=== PATIENT | female | born 1945 | race Caucasian/White ===

== ENCOUNTER → 2019-02-25 | Outpatient (CLI) | payer MEDICARE, MEDICAID | LOC: FB.MH 08:00 | PROVIDERS: ATTEND Psychiatry & Neurology Psychiatry | DX: F33.9 Major depressive disorder, recurrent, unspecified (principal); F41.0 Panic disorder [episodic paroxysmal anxiety] | CPT/HCPCS: 99213 ==

== ENCOUNTER 2019-04-14 06:33 | Day surgery (SDC) | payer MEDICARE, MEDICAID ==
[~2019-04-14 06:33] MED LIST: Sodium Chloride 0.9% 10 ML Syringe FLUSH PRN
[2019-04-14] MEDS ORDERED: Dexamethasone 4 MG/ML 5 ML MDV IVPUSH ONE (06:34)
[2019-04-14] MEDS ORDERED: Midazolam 1 MG/ML 2 ML SDV IV ONE (06:34)
[2019-04-14] MEDS ORDERED: Ketorolac 30 MG/ML SDV IVPUSH ONE (06:34)
[2019-04-14] MEDS ORDERED: Ondansetron 4 MG/2 ML SDV IVPUSH ONE (06:34)
[2019-04-14] MEDS ORDERED: fentaNYL 100 MCG/2 ML SDV IV ONE (06:34)
[2019-04-14] MEDS ORDERED: Propofol 200 MG/20 ML SDV IV ONE (06:34)
[2019-04-14] MEDS ORDERED: hydrALAZINE 20 MG/ML SDV IV ONE (06:34)
[2019-04-14] MEDS ORDERED: ceFAZolin 1 GM Vial IV ONE (06:34)
[2019-04-14] MEDS ORDERED: HYDROmorphone 2 MG/ML SDV IV ONE (06:34)
[2019-04-14] MEDS ORDERED: Lidocaine 2% 5 ML SDV INJECT ONE (06:34)
[2019-04-14] MEDS ORDERED: Lactated Ringers 1,000 ML IV ONE (06:34)
[2019-04-14] MEDS: Lactated Ringers 1,000 ML IV SCH ×3 (07:16→20:46)
--- NOTE | 2019-04-14 08:21 | PCM.PN ---
- General Info Date of Service: 04/14/19 - Review of Systems Systems Review Comment:: 74 y/o female with known CA left breast here for Left Mastectomy and Left Axillary [place] Lymph Node Bx. She is medicaly stable to proceed with no recent significant changes to her health status. The site of the tumor is confirmed with the patient and marked. Proposed procedure again discussed with the patient and her family. Questions answered and she agrees to proceed. - Patient Data Vitals - Most Recent: Last Vital Signs Temp 98.4 F 04/14/19 07:02 Pulse 66 04/14/19 07:02 Resp 16 04/14/19 07:02 BP 145/57 H 04/14/19 07:02 Pulse Ox 95 04/14/19 07:02 Weight - Most Recent: 221 lb 3.7 oz Med Orders - Current: Current Medications Lactated Ringer's (Ringers, Lactated) 1,000 mls @ 125 mls/hr IV ASDIRECTED HAKAN Last Admin: 04/14/19 07:16 Dose: 125 mls/hr Sodium Chloride (Saline Flush) 10 ml FLUSH ASDIRECTED PRN PRN Reason: Keep Vein Open Sepsis Event Note - Focused Exam Vital Signs: Vital Signs Temp Pulse Resp BP Pulse Ox 04/14/19 07:02 98.4 F 66 16 145/57 H 95 Date Exam was Performed: 04/14/19 Time Exam was Performed: 08:18 - Problem List Review Problem List Initiated/Reviewed/Updated: Yes - My Orders Last 24 Hours: My Active Orders 04/13/19 11:43 Resuscitation Status Routine 04/13/19 Dinner Nothing Per Oral Diet [DIET] 04/14/19 06:30 Patient Status [ADT] Routine Patient to Empty Bladder [RC] ASDIRECTED RT Incentive Spirometry [RC] ASDIRECTED Verify Patient Consent Obtain [RC] ASDIRECTED Lactated Ringers [Ringers, Lactated] 1,000 ml IV ASDIRECTED Sodium Chloride 0.9% [Saline Flush] 10 ml FLUSH ASDIRECTED PRN Peripheral IV Insertion Adult [OM.PC] Routine Sequential Compression Device [OM.PC] Routine 04/14/19 07:00 Tumor Local Limited [NM] Routine - Assessment Assessment:: CA Left Breast - Plan Plan:: Left mastectomy with left axillary sentinel lymph node biopsy
[2019-04-14] MEDS ORDERED: Isosulfan Blue 5 ML SDV SUBCUT ONE (08:41)
--- NOTE | 2019-04-14 10:13 | PCM.OPNOTE ---
- General Post-Op/Procedure Note Date of Surgery/Procedure: 04/14/19 Operative Procedure(s): Left Mastectomy with Left Axillary [place] Lymph Node Biopsy Findings: No gross evidence of Tumor extension or enlarged lymph nodes. Pre Op Diagnosis: CA Left Breast Post-Op Diagnosis: Same Anesthesia Technique: General LMA Primary Surgeon: Can Redamn Fiberglass Ski Maker: Elvis Gandara Reason Fiberglass Ski Maker Was Necessary: To assist with dissection and exposure Pathology: Left breast Multiple left axillary lymph nodes EBL in mLs: 100 Surgical Drain/Tube Type: Raghavendra Younger Flat Drain Complications: None Condition: Good
[2019-04-14] MEDS ORDERED: Enoxaparin 100 MG/1 ML Syringe SUBCUT ONE (10:30)
[2019-04-14] MEDS ORDERED: Morphine 2 MG/ML Syringe IVPUSH PRN (12:45)
[2019-04-14] MEDS ORDERED: Acetaminophen/HYDROcodone 325-5 MG Tab PO PRN (12:45)
[2019-04-14] MEDS ORDERED: Albuterol 8 GM Inhaler INH PRN (14:31)
[2019-04-14] MEDS ORDERED: Baclofen 10 MG Tab PO PRN (15:00)
[2019-04-14] MEDS ORDERED: Polyethylene Glycol 3350 Powder 17 GM Packet PO PRN (15:00)
[2019-04-14] MEDS: Carbidopa/Levodopa 25-100 MG Tab PO SCH ×2 (16:19→20:15)
[2019-04-14] MEDS: ceFAZolin 1 GM Vial IVPUSH SCH (16:26)
--- NOTE | 2019-04-14 17:08 | PCM.SURGPN ---
- General Info Date of Service: 04/14/19 Date of Surgery/Procedure: 04/14/19 POD#: 0 Post-Op Diagnosis: CA Left Breast Functional Status: Reports: Pain Controlled - Patient Data Vitals - Most Recent: Last Vital Signs Temp 98.4 F 04/14/19 14:15 Pulse 70 04/14/19 14:15 Resp 18 04/14/19 14:15 BP 143/68 H 04/14/19 14:15 Pulse Ox 100 04/14/19 14:15 Weight - Most Recent: 221 lb 3.7 oz I&O - Last 24 Hours: Intake & Output 04/14/19 04/14/19 04/14/19 06:59 14:59 22:59 Intake Total 100 Output Total 1090 Balance -990 Med Orders - Current: Current Medications Acetaminophen (Tylenol Extra Strength) 500 mg PO Q4H PRN PRN Reason: Headache Hydrocodone Bitart/Acetaminophen ([place] 325-5 Mg) 1 tab PO Q4H PRN PRN Reason: Pain Hydrocodone Bitart/Acetaminophen ([place] 325-5 Mg) 2 tab PO Q4H PRN PRN Reason: Pain (moderate 4-6) Albuterol (Ventolin Hfa) 1 - 2 gm INH Q4H PRN PRN Reason: SHORTNESS OF BREATH Aspirin (Halfprin) 81 mg PO DAILY [facility] Atorvastatin Calcium (Lipitor) 10 mg PO BEDTIME [facility]AKAN Baclofen (Lioresal) 10 mg PO DAILY PRN PRN Reason: MUSCLS SPASMS Bupropion HCl (Wellbutrin Xl) 150 mg PO DAILY [facility] Bupropion HCl (Wellbutrin) 75 mg PO DAILY@1200 [facility] Carbidopa/Levodopa (Sinemet 25-100 Mg) 1 tab PO TID@0800,1500,2100 [facility] Last Admin: 04/14/19 16:19 Dose: 1 tab Carbidopa/Levodopa (Sinemet 25-100 Mg) 2 tab PO DAILY@1800 [facility] Cefazolin Sodium (Ancef) 1 gm IVPUSH Q8H [facility] Stop: 04/15/19 08:01 Last Admin: 04/14/19 16:26 Dose: 1 gm Cholecalciferol (Vitamin D3) 25 mcg PO DAILY [facility] Docusate Sodium (Colace) 100 mg PO DAILY [facility] Donepezil HCl (Aricept) 10 mg PO BEDTIME [facility]AKAN Duloxetine HCl (Cymbalta) 60 mg PO BEDTIME [facility]AK[facility] Enoxaparin Sodium (Lovenox) 30 mg SUBCUT DAILY [facility] Gabapentin (Neurontin) 300 mg PO BEDTIME [facility]AK[facility] Hydrochlorothiazide (Hydrochlorothiazide) 12.5 mg PO DAILY [facility] Lactated Ringer's (Ringers, Lactated) 1,000 mls @ 100 mls/hr IV ASDIRECTED [facility] Levothyroxine Sodium (Levothyroxine) 112 mcg PO DAILY@0600 [facility]AN Lorazepam (Ativan) 1 mg PO BEDTIME [facility]AKAN Losartan Potassium (Cozaar) 25 mg PO DAILY [facility] Memantine (Namenda) 10 mg PO BID [facility] Morphine Sulfate (Morphine) 2 mg IVPUSH Q2H PRN PRN Reason: Pain Multivitamins/Minerals/Vitamin C (Tab-A-Zeyad) 1 tab PO DAILY [facility] (Aripiprazole [ Abilify] 10 Mg) * Ptom 10 mg PO DAILY [facility] (Biotin [Biotin] 1, (000 Mcg) *Ptom) 1,000 mcg PO DAILY [facility]AKAN (Calcium Carbonate/Vitamin D3 [Calcium 600-Vit D3 800 Tab] *Ptom 1 each PO BID [facility] (Lamotrigine [ Lamictal] 150 Mg) * Ptom 150 mg PO BEDTIME HAKAN (Melatonin [ Melatonin] 5 Mg) * Ptom 5 mg PO BEDTIME [facility]AKAN (Omeprazole [ Omeprazole] 40 Mg) * Ptom 40 mg PO DAILY@0600 [facility] (Ropinirole [Requip] (4 Mg) *Ptom) 4 mg PO TIDMEALS [facility]AKAN (Trihexyphenidyl [ (Artane] 2 Mg) *Ptom) 2 mg PO BID@08,15 [facility] Last Admin: 04/14/19 16:19 Dose: 2 mg Polyethylene Glycol (Miralax) 17 gm PO DAILY PRN PRN Reason: CONSTIPATION Sodium Chloride (Saline Flush) 10 ml FLUSH ASDIRECTED PRN PRN Reason: Keep Vein Open Discontinued Medications Lactated Ringer's (Ringers, Lactated) 1,000 mls @ 125 mls/hr IV ASDIRECTED HAKAN Last Admin: 04/14/19 11:46 Dose: 125 mls/hr Isosulfan Blue (Lymphazurin 1%) 10 ml SUBCUT .STK-MED ONE Stop: 04/14/19 08:42 Last Admin: 04/14/19 08:41 Dose: 10 ml - Exam Wound/Incisions: Dressing Dry and Intact Extremities: Non-Tender (no calf tenderness), Other (no left arm swelling or pain) Physical Findings Comment:: ZARIA bloody and continues to drain since it was emptied 3 hours ago. Will observe. Sepsis Event Note - Focused Exam Vital Signs: Vital Signs Temp Temp Pulse Resp BP Pulse Ox 04/14/19 14:15 98.4 F 70 18 143/68 H 100 04/14/19 13:15 71 18 148/64 H 99 04/14/19 12:45 98.0 F 67 18 146/65 H 100 04/14/19 12:10 98.0 F 67 18 155/73 H 100 04/14/19 11:50 70 20 159/62 H 97 04/14/19 11:35 72 20 148/73 H 100 04/14/19 11:20 97.5 F 69 18 153/71 H 99 04/14/19 11:10 67 14 151/62 H 98 04/14/19 11:05 97.5 F 67 15 156/67 H 98 04/14/19 11:00 66 15 135/83 96 04/14/19 10:55 66 12 145/62 H 96 04/14/19 10:50 67 15 146/70 H 96 04/14/19 10:45 66 17 125/59 L 95 04/14/19 10:40 65 14 132/56 L 96 04/14/19 10:35 67 15 142/64 H 94 L 04/14/19 10:30 66 16 129/56 L 96 04/14/19 10:25 97.5 F 64 13 139/66 95 04/14/19 07:02 98.4 F 66 16 145/57 H 95 Date Exam was Performed: 04/14/19 Time Exam was Performed: 17:05 - Problem List Review Problem List Initiated/Reviewed/Updated: Yes - My Orders Last 24 Hours: Active Orders 24 hr Category Date Time Status Patient Status [ADT] Routine ADT 04/14/19 06:30 Ordered Activity as Tolerated [RC] .Routine Care 04/14/19 12:45 Active Communication Order [RC] 08,16, Care 04/14/19 12:45 Active Communication Order [RC] , Care 04/14/19 12:45 Active Communication Order [RC] 08,16,00 Care 04/14/19 12:45 Active IS (RT) [RT Incentive Spirometry] [RC] Q1HWA Care 04/14/19 12:45 Active Oxygen Therapy [RC] ASDIRECTED Care 04/14/19 11:07 Active Urinary Catheter Insertion [Insert Urinary Catheter] [ Care 04/14/19 13:00 Ordered OM.PC] DAILY Urinary Catheter Insertion [Insert Urinary Catheter] [ Care 04/15/19 13:00 Ordered OM.PC] DAILY Urinary Catheter Insertion [Insert Urinary Catheter] [ Care 04/16/19 13:00 Ordered OM.PC] DAILY Urinary Catheter Insertion [Insert Urinary Catheter] [ Care 04/17/19 13:00 Ordered OM.PC] DAILY Urinary Catheter Insertion [Insert Urinary Catheter] [ Care 04/18/19 13:00 Ordered OM.PC] DAILY Vital Signs [RC] PER UNIT ROUTINE Care 04/14/19 12:45 Active Full Liquid Diet [DIET] Diet 04/14/19 Dinner Ordered Nothing Per Oral Diet [DIET] Diet 04/13/19 Dinner Ordered Tumor Local Limited [NM] Routine Exams 04/14/19 12:06 Taken ARIPiprazole [Abilify] Med 04/15/19 09:00 Active 10 mg PO DAILY Acetaminophen [Tylenol Extra Strength] Med 04/14/19 16:37 Active 500 mg PO Q4H PRN Acetaminophen/HYDROcodone [[place] 325-5 MG] Med 04/14/19 12:45 Active 1 tab PO Q4H PRN Acetaminophen/HYDROcodone [[place] 325-5 MG] Med 04/14/19 12:45 Active 2 tab PO Q4H PRN Albuterol [Ventolin HFA] Med 04/14/19 14:31 Active 1 - 2 gm INH Q4H PRN Aspirin [Halfprin] Med 04/15/19 09:00 Active 81 mg PO DAILY Baclofen [Lioresal] Med 04/14/19 15:00 Active 10 mg PO DAILY PRN Biotin [Biotin] Med 04/15/19 09:00 Active 1,000 mcg PO DAILY Calcium Carbonate/Vitamin D3 [Calcium 600-Vit D3 800 Med 04/14/19 21:00 Active Tab] 1 each PO BID Carbidopa/Levodopa [Sinemet 25-100 mg] Med 04/14/19 15:00 Active 1 tab PO TID@0800,1500,2100 Carbidopa/Levodopa [Sinemet 25-100 mg] Med 04/14/19 18:00 Active 2 tab PO DAILY@1800 Cholecalciferol (Vitamin D3) [Vitamin D3] Med 04/15/19 09:00 Active 25 mcg PO DAILY DULoxetine [Cymbalta] Med 04/14/19 21:00 Active 60 mg PO BEDTIME Docusate Sodium [Colace] Med 04/15/19 09:00 Active 100 mg PO DAILY Donepezil [Aricept] Med 04/14/19 21:00 Active 10 mg PO BEDTIME Enoxaparin [Lovenox] Med 04/15/19 09:00 Ordered 30 mg SUBCUT DAILY Gabapentin [Neurontin] Med 04/14/19 21:00 Active 300 mg PO BEDTIME LORazepam [Ativan] Med 04/14/19 21:00 Active 1 mg PO BEDTIME Lactated Ringers [Ringers, Lactated] 1,000 ml Med 04/14/19 12:45 Active IV ASDIRECTED Levothyroxine Med 04/15/19 06:00 Active 112 mcg PO DAILY@0600 Losartan [Cozaar] Med 04/15/19 09:00 Active 25 mg PO DAILY Melatonin [Melatonin] Med 04/14/19 21:00 Active 5 mg PO BEDTIME Memantine [Namenda] Med 04/14/19 21:00 Active 10 mg PO BID Morphine Med 04/14/19 12:45 Active 2 mg IVPUSH Q2H PRN Multivitamins [Tab-A-Zeyad] Med 04/15/19 09:00 Active 1 tab PO DAILY Omeprazole [Omeprazole] Med 04/15/19 06:00 Active 40 mg PO DAILY@0600 Polyethylene Glycol 3350 [MiraLAX] Med 04/14/19 15:00 Active 17 gm PO DAILY PRN Sodium Chloride 0.9% [Saline Flush] Med 04/14/19 06:30 Active 10 ml FLUSH ASDIRECTED PRN Trihexyphenidyl [Artane] Med 04/14/19 15:00 Active 2 mg PO BID@08,15 atorvaSTATin [Lipitor] Med 04/14/19 21:00 Active 10 mg PO BEDTIME buPROPion [Wellbutrin XL] Med 04/15/19 09:00 Active 150 mg PO DAILY buPROPion [Wellbutrin] Med 04/15/19 12:00 Active 75 mg PO DAILY@1200 ceFAZolin [Ancef] Med 04/14/19 16:00 Active 1 gm IVPUSH Q8H hydroCHLOROthiazide Med 04/15/19 09:00 Active 12.5 mg PO DAILY lamoTRIgine [LaMICtal] Med 04/14/19 21:00 Active 150 mg PO BEDTIME rOPINIRole [Requip] Med 04/14/19 18:00 Active 4 mg PO TIDMEALS Peripheral IV Insertion Adult [OM.PC] Routine Oth 04/14/19 06:30 Ordered Sequential Compression Device [OM.PC] Routine Oth 04/14/19 06:30 Ordered Medication Orders Acetaminophen (Tylenol Extra Strength) 500 mg PO Q4H PRN PRN Reason: Headache Hydrocodone Bitart/Acetaminophen ([place] 325-5 Mg) 1 tab PO Q4H PRN PRN Reason: Pain Hydrocodone Bitart/Acetaminophen ([place] 325-5 Mg) 2 tab PO Q4H PRN PRN Reason: Pain (moderate 4-6) Albuterol (Ventolin Hfa) 1 - 2 gm INH Q4H PRN PRN Reason: SHORTNESS OF BREATH Aspirin (Halfprin) 81 mg PO DAILY [facility] Atorvastatin Calcium (Lipitor) 10 mg PO BEDTIME [facility] Baclofen (Lioresal) 10 mg PO DAILY PRN PRN Reason: MUSCLS SPASMS Bupropion HCl (Wellbutrin Xl) 150 mg PO DAILY [facility] Bupropion HCl (Wellbutrin) 75 mg PO DAILY@1200 [facility] Carbidopa/Levodopa (Sinemet 25-100 Mg) 1 tab PO TID@0800,1500,2100 [facility] Last Admin: 04/14/19 16:19 Dose: 1 tab Carbidopa/Levodopa (Sinemet 25-100 Mg) 2 tab PO DAILY@1800 [facility] Cefazolin Sodium (Ancef) 1 gm IVPUSH Q8H [facility] Stop: 04/15/19 08:01 Last Admin: 04/14/19 16:26 Dose: 1 gm Cholecalciferol (Vitamin D3) 25 mcg PO DAILY [facility] Docusate Sodium (Colace) 100 mg PO DAILY [facility] Donepezil HCl (Aricept) 10 mg PO BEDTIME [facility] Duloxetine HCl (Cymbalta) 60 mg PO BEDTIME [facility] Enoxaparin Sodium (Lovenox) 30 mg SUBCUT DAILY [facility] Gabapentin (Neurontin) 300 mg PO BEDTIME [facility] Hydrochlorothiazide (Hydrochlorothiazide) 12.5 mg PO DAILY [facility] Lactated Ringer's (Ringers, Lactated) 1,000 mls @ 100 mls/hr IV ASDIRECTED [facility]AKAN Levothyroxine Sodium (Levothyroxine) 112 mcg PO DAILY@0600 [facility] Lorazepam (Ativan) 1 mg PO BEDTIME [facility] Losartan Potassium (Cozaar) 25 mg PO DAILY [facility] Memantine (Namenda) 10 mg PO BID [facility] Morphine Sulfate (Morphine) 2 mg IVPUSH Q2H PRN PRN Reason: Pain Multivitamins/Minerals/Vitamin C (Tab-A-Zeyad) 1 tab PO DAILY [facility] (Aripiprazole [ Abilify] 10 Mg) * Ptom 10 mg PO DAILY [facility] (Biotin [Biotin] 1, (000 Mcg) *Ptom) 1,000 mcg PO DAILY [facility] (Calcium Carbonate/Vitamin D3 [Calcium 600-Vit D3 800 Tab] *Ptom 1 each PO BID [facility] (Lamotrigine [ Lamictal] 150 Mg) * Ptom 150 mg PO BEDTIME HAKAN (Melatonin [ Melatonin] 5 Mg) * Ptom 5 mg PO BEDTIME [facility]AKAN (Omeprazole [ Omeprazole] 40 Mg) * Ptom 40 mg PO DAILY@0600 [facility] (Ropinirole [Requip] (4 Mg) *Ptom) 4 mg PO TIDMEALS HAKAN (Trihexyphenidyl [ (Artane] 2 Mg) *Ptom) 2 mg PO BID@08,15 [facility] Last Admin: 04/14/19 16:19 Dose: 2 mg Polyethylene Glycol (Miralax) 17 gm PO DAILY PRN PRN Reason: CONSTIPATION Sodium Chloride (Saline Flush) 10 ml FLUSH ASDIRECTED PRN PRN Reason: Keep Vein Open - Assessment Assessment (Free Text/Narrative):: Mastectomy for Breast CA Factor V - Plan Plan (Free Text/Narrative):: Another dose of Lovenox ordered for tomorrow am. will see how drainage is at that time.
--- NOTE | 2019-04-14 17:50 | OR ---
DATE OF OPERATION: 04/14/2019 SURGEON: Can Redman MD IMPROVEMENT MANAGER: Elvis Gandara MD. Applique Cutter necessary to assist with dissection and exposure and improve efficiency. PREOPERATIVE DIAGNOSIS: Carcinoma of the left breast. POSTOPERATIVE DIAGNOSIS: Carcinoma of the left breast. OPERATION PERFORMED: Left mastectomy and left axillary sentinel lymph node biopsy. INDICATIONS FOR SURGERY: This 74-year-old female was found on screening mammography to have an abnormality in her left breast. Biopsy did identify this as a malignancy. She underwent oncologic consultation and comes today for left mastectomy and lymph node sampling. FINDINGS: In the left breast, there is no gross evidence of tumor extension outside of the breast. The underlying muscle appears intact as does the overlying skin. I do not see any specific enlarged or visibly abnormal lymph nodes although multiple nodes are removed for sentinel node biopsy. PROCEDURE IN DETAIL: The patient was taken to the operating room. She was given LMA anesthesia and the left breast and axilla were sterilely prepped with Betadine and draped. The proposed location of the transverse elliptical incision on the left breast was marked and the superior flap was raised. First, the incision was made and then using cautery dissection the superior flap was raised with dissection being carried down to the underlying pectoralis major muscle. Hemostasis was assured with cautery and Vicryl suture ligatures were needed. This carried the dissection into the axilla and using the probe careful examination of the left axilla identified areas of increased uptake. The patient had 1.3 microcuries of radionucleotide tracer injected beneath the left areola prior to the patient coming back to the OR. With the help of the radionucleotide identifying probe, 3 sentinel nodes were obtained with 10-second counts of 7751, 526, and 855. Dissection then continued with the final removal of the left breast. The inferior incision was made and the inferior flap was raised with cautery dissection down to the chest wall. The breast was dissected free from the underlying pectoralis major muscle using cautery dissection with good hemostasis assured with the use of electrocautery. Once the breast had been completely freed, it was removed. After the breast had been removed, the axilla was again examined with the radionucleotide probe to see if any additional involved lymph nodes were present, and 2 additional areas of increased uptake were noted. These were small areas, but were removed, and their 10-second counts were 1333 and 1190. In all, 5 samples from the left axilla were taken and these were submitted as sentinel axillary nodes. The wound was irrigated. Full hemostasis was assured with cautery. A flat Raghavendra- Younger drain was placed through a separate stab wound incision, which was secured to the skin with 2-0 silk. The subcutaneous tissue was approximated with interrupted 3-0 Vicryl. Skin edges were approximated with skin gudelia and the drain was connected to bulb suction. A sterile dressing was placed. The patient was then awakened, extubated, taken from the operating room in satisfactory condition. ESTIMATED BLOOD LOSS: 100 mL. COMPLICATIONS: None. PROGNOSIS: Good. /[id number] RACHEL/MAYO
[2019-04-14] MEDS ORDERED: Carbidopa/Levodopa 25-100 MG Tab *PTOM PO SCH (18:00)
[2019-04-14] MEDS: Acetaminophen 500 MG Tab PO PRN (18:03)
[2019-04-14] MEDS: CALCIUM CARBONATE PO SCH (20:15)
[2019-04-14] MEDS: VITAMIN D3 PO SCH (20:15)
[2019-04-14] MEDS: Memantine 10 MG Tab *PTOM PO SCH (20:15)
[2019-04-14] MEDS: Acetaminophen/HYDROcodone 325-5 MG Tab PO PRN (20:33)
[2019-04-14] MEDS ORDERED: atorvaSTATin 10 MG Tab *PTOM PO SCH (21:00)
[2019-04-14] MEDS ORDERED: MELATONIN 5 MG PO SCH (21:00)
[2019-04-14] MEDS ORDERED: Gabapentin 300 MG Cap *PTOM PO SCH (21:00)
[2019-04-14] MEDS ORDERED: DULoxetine 60 MG Cap *PTOM PO SCH (21:00)
[2019-04-14] MEDS ORDERED: Donepezil 10 MG Tab *PTOM PO SCH (21:00)
[2019-04-14] MEDS ORDERED: LORazepam 1 MG Tab PO SCH (21:00)
[2019-04-15] MEDS: ceFAZolin 1 GM Vial IVPUSH SCH ×2 (00:31→08:29)
[2019-04-15] MEDS ORDERED: LEVOTHYROXINE 112 MCG PO SCH (06:00)
[2019-04-15] MEDS: Acetaminophen/HYDROcodone 325-5 MG Tab PO PRN ×2 (06:25→11:22)
[2019-04-15] MEDS: Lactated Ringers 1,000 ML IV SCH (06:35)
--- NOTE | 2019-04-15 07:48 | PCM.SURGPN ---
- General Info Date of Service: 04/15/19 Date of Surgery/Procedure: 04/14/19 POD#: 1 Post-Op Diagnosis: CA Left Breast Functional Status: Reports: Pain Controlled (with oral agents) - Review of Systems Pulmonary: Reports: No Symptoms Cardiovascular: Reports: No Symptoms Musculoskeletal: Reports: Other (no left arm swelling or numbness) - Patient Data Vitals - Most Recent: Last Vital Signs Temp 97.6 F 04/15/19 03:42 Pulse 67 04/15/19 03:42 Resp 16 04/15/19 03:42 BP 137/62 04/15/19 03:42 Pulse Ox 97 04/15/19 03:42 Weight - Most Recent: 221 lb 3.7 oz I&O - Last 24 Hours: Intake & Output 04/14/19 04/15/19 04/15/19 22:59 06:59 14:59 Intake Total 742 984 Output Total 40 Balance 702 984 Lab Results Last 24 Hrs: Laboratory Results - last 24 hr 04/15/19 04/15/19 Range/Units 06:02 06:02 WBC 12.5 H (4.5-12.0) X10-3/uL RBC 3.61 (3.23-5.20) x10(6)uL Hgb 11.1 L (11.5-15.5) g/dL Hct 32.7 (30.0-51.3) % MCV 90.7 (80-96) fL MCH 30.8 (27.7-33.6) pg MCHC 33.9 (32.2-35.4) g/dL RDW 13.3 (11.5-15.5) % Plt Count 266 (125-369) X10(3)uL Potassium 3.9 (3.5-5.3) mmol/L Creatinine 0.7 (0.55-1.02) mg/dL Est Cr Clr Drug Dosing 56.61 mL/min Estimated GFR (MDRD) > 60 (>60) Med Orders - Current: Current Medications Acetaminophen (Tylenol Extra Strength) 500 mg PO Q4H PRN PRN Reason: Headache Last Admin: 04/14/19 18:03 Dose: 500 mg Hydrocodone Bitart/Acetaminophen (Bailey 325-5 Mg) 1 tab PO Q4H PRN PRN Reason: Pain Last Admin: 04/15/19 06:25 Dose: 1 tab Hydrocodone Bitart/Acetaminophen (Bailey 325-5 Mg) 2 tab PO Q4H PRN PRN Reason: Pain (moderate 4-6) Albuterol (Ventolin Hfa) 1 - 2 gm INH Q4H PRN PRN Reason: SHORTNESS OF BREATH Aspirin (Halfprin) 81 mg PO DAILY [facility] Atorvastatin Calcium (Lipitor) 10 mg PO BEDTIME [facility] Last Admin: 04/14/19 20:15 Dose: 10 mg Baclofen (Lioresal) 10 mg PO DAILY PRN PRN Reason: MUSCLS SPASMS Bupropion HCl (Wellbutrin Xl) 150 mg PO DAILY [facility] Bupropion HCl (Wellbutrin) 75 mg PO DAILY@1200 [facility] Carbidopa/Levodopa (Sinemet 25-100 Mg) 1 tab PO TID@0800,1500,2100 [facility] Last Admin: 04/14/19 20:15 Dose: 1 tab Carbidopa/Levodopa (Sinemet 25-100 Mg) 2 tab PO DAILY@1800 [facility] Last Admin: 04/14/19 19:14 Dose: 2 tab Cefazolin Sodium (Ancef) 1 gm IVPUSH Q8H [facility] Stop: 04/15/19 08:01 Last Admin: 04/15/19 00:31 Dose: 1 gm Cholecalciferol (Vitamin D3) 25 mcg PO DAILY [facility] Docusate Sodium (Colace) 100 mg PO DAILY [facility] Donepezil HCl (Aricept) 10 mg PO BEDTIME [facility] Last Admin: 04/14/19 20:15 Dose: 10 mg Duloxetine HCl (Cymbalta) 60 mg PO BEDTIME [facility] Last Admin: 04/14/19 20:15 Dose: 60 mg Enoxaparin Sodium (Lovenox) 30 mg SUBCUT DAILY [facility] Gabapentin (Neurontin) 300 mg PO BEDTIME [facility] Last Admin: 04/14/19 20:16 Dose: 300 mg Hydrochlorothiazide (Hydrochlorothiazide) 12.5 mg PO DAILY [facility] Lactated Ringer's (Ringers, Lactated) 1,000 mls @ 100 mls/hr IV ASDIRECTED [facility] Last Admin: 04/15/19 06:35 Dose: 100 mls/hr Levothyroxine Sodium (Levothyroxine) 112 mcg PO DAILY@0600 [facility] Last Admin: 04/15/19 06:21 Dose: 112 mcg Lorazepam (Ativan) 1 mg PO BEDTIME [facility] Last Admin: 04/14/19 20:34 Dose: 1 mg Losartan Potassium (Cozaar) 25 mg PO DAILY [facility] Memantine (Namenda) 10 mg PO BID [facility] Last Admin: 04/14/19 20:15 Dose: 10 mg Morphine Sulfate (Morphine) 2 mg IVPUSH Q2H PRN PRN Reason: Pain Multivitamins/Minerals/Vitamin C (Tab-A-Zeyad) 1 tab PO DAILY [facility] (Aripiprazole [ Abilify] 10 Mg) * Ptom 10 mg PO DAILY [facility] (Biotin [Biotin] 1, (000 Mcg) *Ptom) 1,000 mcg PO DAILY [facility] (Calcium Carbonate/Vitamin D3 [Calcium 600-Vit D3 800 Tab] *Ptom 1 each PO BID [facility] Last Admin: 04/14/19 20:15 Dose: 1 each (Lamotrigine [ Lamictal] 150 Mg) * Ptom 150 mg PO BEDTIME [facility] Last Admin: 04/14/19 20:15 Dose: 150 mg (Melatonin [ Melatonin] 5 Mg) * Ptom 5 mg PO BEDTIME [facility] Last Admin: 04/14/19 20:16 Dose: 5 mg (Omeprazole [ Omeprazole] 40 Mg) * Ptom 40 mg PO DAILY@0600 [facility] Last Admin: 04/15/19 06:21 Dose: 40 mg (Ropinirole [Requip] (4 Mg) *Ptom) 4 mg PO TIDMEALS [facility] Last Admin: 04/14/19 19:13 Dose: 4 mg (Trihexyphenidyl [ (Artane] 2 Mg) *Ptom) 2 mg PO BID@08,15 [facility] Last Admin: 04/14/19 16:19 Dose: 2 mg Polyethylene Glycol (Miralax) 17 gm PO DAILY PRN PRN Reason: CONSTIPATION Sodium Chloride (Saline Flush) 10 ml FLUSH ASDIRECTED PRN PRN Reason: Keep Vein Open Discontinued Medications Lactated Ringer's (Ringers, Lactated) 1,000 mls @ 125 mls/hr IV ASDIRECTED [facility] Last Admin: 04/14/19 11:46 Dose: 125 mls/hr Isosulfan Blue (Lymphazurin 1%) 10 ml SUBCUT .STK-MED ONE Stop: 04/14/19 08:42 Last Admin: 04/14/19 08:41 Dose: 10 ml - Exam Wound/Incisions: Healing Well, Drainage (minimal), Other (ZARIA drainage decreasing and becoming thinner). No: Erythema General: Alert, Oriented Extremities: Non-Tender (no calf tenderness, Left arm color appears normal, no edema) Sepsis Event Note - Evaluation Sepsis Screening Result: No Definite Risk - Focused Exam Vital Signs: Vital Signs Temp Pulse Resp BP Pulse Ox 04/15/19 03:42 97.6 F 67 16 137/62 97 04/15/19 01:48 97.6 F 71 16 140/62 97 04/14/19 22:00 97.6 F 68 16 128/65 97 Date Exam was Performed: 04/15/19 Time Exam was Performed: 07:44 - Problem List Review Problem List Initiated/Reviewed/Updated: Yes - My Orders Last 24 Hours: Active Orders 24 hr Category Date Time Status Activity as Tolerated [RC] .Routine Care 04/14/19 12:45 Active Communication Order [RC] 08,, Care 04/14/19 12:45 Active Communication Order [RC] 08,, Care 04/14/19 12:45 Active Communication Order [RC] 08,16, Care 04/14/19 12:45 Active IS (RT) [RT Incentive Spirometry] [RC] Q1HWA Care 04/14/19 12:45 Active Oxygen Therapy [RC] ASDIRECTED Care 04/14/19 11:07 Active Urinary Catheter Insertion [Insert Urinary Catheter] [ Care 04/14/19 13:00 Ordered OM.PC] DAILY Urinary Catheter Insertion [Insert Urinary Catheter] [ Care 04/15/19 13:00 Ordered OM.PC] DAILY Urinary Catheter Insertion [Insert Urinary Catheter] [ Care 04/16/19 13:00 Ordered OM.PC] DAILY Urinary Catheter Insertion [Insert Urinary Catheter] [ Care 04/17/19 13:00 Ordered OM.PC] DAILY Urinary Catheter Insertion [Insert Urinary Catheter] [ Care 04/18/19 13:00 Ordered OM.PC] DAILY Vital Signs [RC] PER UNIT ROUTINE Care 04/14/19 12:45 Active Full Liquid Diet [DIET] Diet 04/14/19 Dinner Ordered Tumor Local Limited [NM] Routine Exams 04/14/19 12:06 Taken ARIPiprazole [Abilify] Med 04/15/19 09:00 Active 10 mg PO DAILY Acetaminophen [Tylenol Extra Strength] Med 04/14/19 16:37 Active 500 mg PO Q4H PRN Acetaminophen/HYDROcodone [Bailey 325-5 MG] Med 04/14/19 12:45 Active 1 tab PO Q4H PRN Acetaminophen/HYDROcodone [Bailey 325-5 MG] Med 04/14/19 12:45 Active 2 tab PO Q4H PRN Albuterol [Ventolin HFA] Med 04/14/19 14:31 Active 1 - 2 gm INH Q4H PRN Aspirin [Halfprin] Med 04/15/19 09:00 Active 81 mg PO DAILY Baclofen [Lioresal] Med 04/14/19 15:00 Active 10 mg PO DAILY PRN Biotin [Biotin] Med 04/15/19 09:00 Active 1,000 mcg PO DAILY Calcium Carbonate/Vitamin D3 [Calcium 600-Vit D3 800 Med 04/14/19 21:00 Active Tab] 1 each PO BID Carbidopa/Levodopa [Sinemet 25-100 mg] Med 04/14/19 15:00 Active 1 tab PO TID@0800,1500,2100 Carbidopa/Levodopa [Sinemet 25-100 mg] Med 04/14/19 18:00 Active 2 tab PO DAILY@1800 Cholecalciferol (Vitamin D3) [Vitamin D3] Med 04/15/19 09:00 Active 25 mcg PO DAILY DULoxetine [Cymbalta] Med 04/14/19 21:00 Active 60 mg PO BEDTIME Docusate Sodium [Colace] Med 04/15/19 09:00 Active 100 mg PO DAILY Donepezil [Aricept] Med 04/14/19 21:00 Active 10 mg PO BEDTIME Enoxaparin [Lovenox] Med 04/15/19 09:00 Pending 30 mg SUBCUT DAILY Gabapentin [Neurontin] Med 04/14/19 21:00 Active 300 mg PO BEDTIME LORazepam [Ativan] Med 04/14/19 21:00 Active 1 mg PO BEDTIME Lactated Ringers [Ringers, Lactated] 1,000 ml Med 04/14/19 12:45 Active IV ASDIRECTED Levothyroxine Med 04/15/19 06:00 Active 112 mcg PO DAILY@0600 Losartan [Cozaar] Med 04/15/19 09:00 Active 25 mg PO DAILY Melatonin [Melatonin] Med 04/14/19 21:00 Active 5 mg PO BEDTIME Memantine [Namenda] Med 04/14/19 21:00 Active 10 mg PO BID Morphine Med 04/14/19 12:45 Active 2 mg IVPUSH Q2H PRN Multivitamins [Tab-A-Zeyad] Med 04/15/19 09:00 Active 1 tab PO DAILY Omeprazole [Omeprazole] Med 04/15/19 06:00 Active 40 mg PO DAILY@0600 Polyethylene Glycol 3350 [MiraLAX] Med 04/14/19 15:00 Active 17 gm PO DAILY PRN Trihexyphenidyl [Artane] Med 04/14/19 15:00 Active 2 mg PO BID@08,15 atorvaSTATin [Lipitor] Med 04/14/19 21:00 Active 10 mg PO BEDTIME buPROPion [Wellbutrin XL] Med 04/15/19 09:00 Active 150 mg PO DAILY buPROPion [Wellbutrin] Med 04/15/19 12:00 Active 75 mg PO DAILY@1200 ceFAZolin [Ancef] Med 04/14/19 16:00 Active 1 gm IVPUSH Q8H hydroCHLOROthiazide Med 04/15/19 09:00 Active 12.5 mg PO DAILY lamoTRIgine [LaMICtal] Med 04/14/19 21:00 Active 150 mg PO BEDTIME rOPINIRole [Requip] Med 04/14/19 18:00 Active 4 mg PO TIDMEALS Medication Orders Acetaminophen (Tylenol Extra Strength) 500 mg PO Q4H PRN PRN Reason: Headache Last Admin: 04/14/19 18:03 Dose: 500 mg Hydrocodone Bitart/Acetaminophen (Bailey 325-5 Mg) 1 tab PO Q4H PRN PRN Reason: Pain Last Admin: 04/15/19 06:25 Dose: 1 tab Admin: 04/14/19 20:33 Dose: 1 tab Hydrocodone Bitart/Acetaminophen (Bailey 325-5 Mg) 2 tab PO Q4H PRN PRN Reason: Pain (moderate 4-6) Albuterol (Ventolin Hfa) 1 - 2 gm INH Q4H PRN PRN Reason: SHORTNESS OF BREATH Aspirin (Halfprin) 81 mg PO DAILY [facility] Atorvastatin Calcium (Lipitor) 10 mg PO BEDTIME [facility] Last Admin: 04/14/19 20:15 Dose: 10 mg Baclofen (Lioresal) 10 mg PO DAILY PRN PRN Reason: MUSCLS SPASMS Bupropion HCl (Wellbutrin Xl) 150 mg PO DAILY [facility] Bupropion HCl (Wellbutrin) 75 mg PO DAILY@1200 [facility] Carbidopa/Levodopa (Sinemet 25-100 Mg) 1 tab PO TID@0800,1500,2100 [facility] Last Admin: 04/14/19 20:15 Dose: 1 tab Admin: 04/14/19 16:19 Dose: 1 tab Carbidopa/Levodopa (Sinemet 25-100 Mg) 2 tab PO DAILY@1800 [facility] Last Admin: 04/14/19 19:14 Dose: 2 tab Cefazolin Sodium (Ancef) 1 gm IVPUSH Q8H [facility] Stop: 04/15/19 08:01 Last Admin: 04/15/19 00:31 Dose: 1 gm Admin: 04/14/19 16:26 Dose: 1 gm Cholecalciferol (Vitamin D3) 25 mcg PO DAILY [facility] Docusate Sodium (Colace) 100 mg PO DAILY [facility] Donepezil HCl (Aricept) 10 mg PO BEDTIME [facility] Last Admin: 04/14/19 20:15 Dose: 10 mg Duloxetine HCl (Cymbalta) 60 mg PO BEDTIME [facility] Last Admin: 04/14/19 20:15 Dose: 60 mg Enoxaparin Sodium (Lovenox) 30 mg SUBCUT DAILY [facility] Gabapentin (Neurontin) 300 mg PO BEDTIME [facility] Last Admin: 04/14/19 20:16 Dose: 300 mg Hydrochlorothiazide (Hydrochlorothiazide) 12.5 mg PO DAILY [facility] Lactated Ringer's (Ringers, Lactated) 1,000 mls @ 100 mls/hr IV ASDIRECTED [facility] Last Admin: 04/15/19 06:35 Dose: 100 mls/hr Infusion: 04/15/19 06:35 Dose: 100 mls/hr Admin: 04/14/19 20:46 Dose: 100 mls/hr Levothyroxine Sodium (Levothyroxine) 112 mcg PO DAILY@0600 [facility] Last Admin: 04/15/19 06:21 Dose: 112 mcg Lorazepam (Ativan) 1 mg PO BEDTIME [facility] Last Admin: 04/14/19 20:34 Dose: 1 mg Losartan Potassium (Cozaar) 25 mg PO DAILY [facility] Memantine (Namenda) 10 mg PO BID [facility] Last Admin: 04/14/19 20:15 Dose: 10 mg Morphine Sulfate (Morphine) 2 mg IVPUSH Q2H PRN PRN Reason: Pain Multivitamins/Minerals/Vitamin C (Tab-A-Zeyad) 1 tab PO DAILY [facility] (Aripiprazole [ Abilify] 10 Mg) * Ptom 10 mg PO DAILY [facility] (Biotin [Biotin] 1, (000 Mcg) *Ptom) 1,000 mcg PO DAILY [facility] (Calcium Carbonate/Vitamin D3 [Calcium 600-Vit D3 800 Tab] *Ptom 1 each PO BID [facility] Last Admin: 04/14/19 20:15 Dose: 1 each (Lamotrigine [ Lamictal] 150 Mg) * Ptom 150 mg PO BEDTIME [facility] Last Admin: 04/14/19 20:15 Dose: 150 mg (Melatonin [ Melatonin] 5 Mg) * Ptom 5 mg PO BEDTIME [facility] Last Admin: 04/14/19 20:16 Dose: 5 mg (Omeprazole [ Omeprazole] 40 Mg) * Ptom 40 mg PO DAILY@0600 [facility] Last Admin: 04/15/19 06:21 Dose: 40 mg (Ropinirole [Requip] (4 Mg) *Ptom) 4 mg PO TIDMEALS [facility] Last Admin: 04/14/19 19:13 Dose: 4 mg (Trihexyphenidyl [ (Artane] 2 Mg) *Ptom) 2 mg PO BID@08,15 [facility] Last Admin: 04/14/19 16:19 Dose: 2 mg Polyethylene Glycol (Miralax) 17 gm PO DAILY PRN PRN Reason: CONSTIPATION Sodium Chloride (Saline Flush) 10 ml FLUSH ASDIRECTED PRN PRN Reason: Keep Vein Open - Assessment Assessment (Free Text/Narrative):: POD #1 Mastectomy - Plan Plan (Free Text/Narrative):: Discharge back to [facility] pre admission meds
[2019-04-15] MEDS: Carbidopa/Levodopa 25-100 MG Tab PO SCH (08:32)
[2019-04-15] MEDS: VITAMIN D3 PO SCH (08:33)
[2019-04-15] MEDS: CALCIUM CARBONATE PO SCH (08:33)
[2019-04-15] MEDS: Memantine 10 MG Tab *PTOM PO SCH (08:36)
[2019-04-15] MEDS ORDERED: Hydrochlorothiazide 12.5 MG Cap *PTOM PO SCH (09:00)
[2019-04-15] MEDS ORDERED: Docusate Sodium 100 MG Cap *PTOM PO SCH (09:00)
[2019-04-15] MEDS ORDERED: buPROPion 150 MG Tab.ER *PTOM PO SCH (09:00)
[2019-04-15] MEDS ORDERED: Losartan 25 MG Tab *PTOM PO SCH (09:00)
[2019-04-15] MEDS ORDERED: BIOTIN 1000 MCG PO SCH (09:00)
[2019-04-15] MEDS ORDERED: Enoxaparin 30 MG/0.3 ML Syringe SUBCUT SCH (09:00)
[2019-04-15] MEDS ORDERED: Multivitamin Tab *PTOM PO SCH (09:00)
[2019-04-15] MEDS ORDERED: CHOLECALCIFEROL 25 MCG PO SCH (09:00)
[2019-04-15] MEDS ORDERED: Aspirin 81 MG Tab.EC PO SCH (09:00)
[2019-04-15] MEDS ORDERED: ARIPIPRAZOLE 10 MG PO SCH (09:00)
[2019-04-15] MEDS: Acetaminophen 500 MG Tab PO PRN (10:26)
== END 2019-04-15 13:25 ==
LOC: FB.SDS 06:33 → FB.MS 11:09 → FB.SDS 11:09 → FB.MS 11:10 → FB.SDS 04-15 13:25 → FB.MS 04-15 13:25
PROVIDERS: ATTEND Surgery
DX: C50.912 Malignant neoplasm of unspecified site of left female breast (principal); C77.3 Secondary and unspecified malignant neoplasm of axilla and upper limb lymph nodes
CPT/HCPCS: 00404-QZ; 36415; 78800; 82565; 84132; 85027; 88305; 88307; 88341; 88342; 88360; 94150; A9270-GY; A9541; J0360; J0690; J1100; J1170; J1650; J1885; J2001; J2250; J2405; J2704; J3010; J7120; Q9968

== ENCOUNTER 2019-04-29 09:27 | Day surgery (SDC) | payer MEDICARE, MEDICAID ==
[2019-04-29] MEDS ORDERED: ceFAZolin 1 GM Vial IV ONE (09:28)
[2019-04-29] MEDS ORDERED: Midazolam 1 MG/ML 2 ML SDV IV ONE (09:28)
[2019-04-29] MEDS ORDERED: Propofol 200 MG/20 ML SDV IV ONE ×2 (09:28)
[2019-04-29] MEDS ORDERED: Lactated Ringers 1,000 ML IV SCH (09:30)
[2019-04-29] MEDS ORDERED: Sodium Chloride 0.9% 10 ML Syringe FLUSH PRN (09:30)
--- NOTE | 2019-04-29 11:30 | PCM.PN ---
- General Info Date of Service: 04/29/19 - Review of Systems Systems Review Comment:: 74 y/o female with breast cancer here for placement of venous access port. Site confirmed with patient. The proposed procedure has been discussed with the patient. Risks have been discussed and she agrees to proceed. She is recovering well from her mastectomy and is medically stable to proceed with no recent significant changes to her health status. - Patient Data Vitals - Most Recent: Last Vital Signs Temp 98.3 F 04/29/19 09:57 Pulse 66 04/29/19 09:57 Resp 16 04/29/19 09:57 BP 179/73 H 04/29/19 09:57 Pulse Ox 98 04/29/19 09:57 Weight - Most Recent: 221 lb Med Orders - Current: Current Medications Lactated Ringer's (Ringers, Lactated) 1,000 mls @ 125 mls/hr IV ASDIRECTED [facility] Last Admin: 04/29/19 10:50 Dose: 125 mls/hr Sodium Chloride (Saline Flush) 10 ml FLUSH ASDIRECTED PRN PRN Reason: Keep Vein Open Sepsis Event Note - Focused Exam Vital Signs: Vital Signs Temp Pulse Resp BP Pulse Ox 04/29/19 09:57 98.3 F 66 16 179/73 H 98 Date Exam was Performed: 04/29/19 Time Exam was Performed: 11:27 - Problem List Review Problem List Initiated/Reviewed/Updated: Yes - My Orders Last 24 Hours: My Active Orders 04/28/19 Dinner Nothing Per Oral Diet [DIET] 04/29/19 09:30 Patient Status [ADT] Routine Patient to Empty Bladder [RC] ASDIRECTED RT Incentive Spirometry [RC] ASDIRECTED Verify Patient Consent Obtain [RC] ASDIRECTED Lactated Ringers [Ringers, Lactated] 1,000 ml IV ASDIRECTED Sodium Chloride 0.9% [Saline Flush] 10 ml FLUSH ASDIRECTED PRN Peripheral IV Insertion Adult [OM.PC] Routine Sequential Compression Device [OM.PC] Routine - Assessment Assessment:: Breast Ca - Plan Plan:: Placement of venous access port.
[2019-04-29] MEDS ORDERED: Lidocaine 1% 20 ML MDV ONE (11:53)
[2019-04-29] MEDS ORDERED: Bupivacaine 0.5% 30 ML SDV INJECT ONE (11:53)
--- NOTE | 2019-04-29 13:22 | PCM.OPNOTE ---
- General Post-Op/Procedure Note Date of Surgery/Procedure: 04/29/19 Operative Procedure(s): placement permanent venous access port Findings: Satisfactory quality right cephalic vein to allow placement of venous access catheter Pre Op Diagnosis: Breast Ca Post-Op Diagnosis: Same Anesthesia Technique: Local, MAC Primary Surgeon: Can Redman Pathology: none EBL in mLs: 20 Complications: None Condition: Good
--- NOTE | 2019-04-29 14:26 | CR ---
INDICATION: Port placement. C-ARM IN OR, LESS THAN 1 HOUR: 2.8 minutes C-arm fluoroscopy time was utilized in OR during A-port placement. Six fluoroscopic C-arm spot images were obtained with the final images having appearance suggesting adequate position of the A-port tip in the area of the SVC just above the right atrium. MTDD
--- NOTE | 2019-04-29 14:30 | CR ---
INDICATION: Port placement. CHEST: A single, AP portable upright view of the chest was obtained and revealed a Port-a-cath in place with its tip in the area of the SVC at the level of the rubio - adequate positioning. A complicating process was not identified. The heart appears somewhat enlarged. The aorta is tortuous. No consolidation or effusion was seen. IMPRESSION: Satisfactory A-port placement is suggested. MTDD
--- NOTE | 2019-04-29 18:54 | OR ---
DATE OF OPERATION: 04/29/2019 SURGEON: Can Redman MD PREOPERATIVE DIAGNOSIS: Carcinoma of the breast. POSTOPERATIVE DIAGNOSIS: Carcinoma of the breast. OPERATION PERFORMED: Placement of permanent venous access device. INDICATIONS FOR SURGERY: A 74-year-old female who has recently been diagnosed with carcinoma of the breast and is anticipating intravenous chemotherapy. A permanent venous access port is planned to facilitate this. FINDINGS: In the right deltopectoral groove, a cephalic vein of satisfactory quality is identified. The catheter is able to be manipulated into the superior vena cava near the level of the right atrium. The catheter irrigated well at the close of the procedure. DESCRIPTION OF PROCEDURE: The patient was taken to the operating room. She was given intravenous sedation, and in the supine position, the right chest was sterilely prepped and draped. The skin and the tissue overlying the right deltopectoral groove were infiltrated with Marcaine and lidocaine and then a linear incision was made in the skin over the right deltopectoral groove. Dissection proceeded down onto this groove and the muscle layers were at this level exposing the deltopectoral groove, and after careful persistent dissection, a vein of satisfactory quality was identified. It was isolated proximally and distally and looped with silk ties. The 8-Danish catheter from the Bard port device was irrigated with heparin. A small venotomy was made in this exposed segment of the right cephalic vein and the end of catheter was then able to be advanced under direct visualization into the right cephalic vein and then carefully advanced into the central venous system. C-arm fluoroscopy was used to identify the location of this catheter. The catheter was noted to have passed up into the right side of the neck, and so under C-arm fluoroscopy, the catheter was slowly withdrawn until it was back into the right subclavian vein, and then after positioning the patient's neck to the right, further manipulation of the catheter under C-arm fluoroscopy was used to advance the catheter into the right superior vena cava. After positioning the catheter at approximately the level of the right atrium, catheter was noted to aspirate blood and irrigated heparin easily. The high port kit had been used and the receptacle itself was irrigated with heparin. A subcutaneously located pocket was made on the surface of the pectoralis muscle just medial to the point of catheter insertion and some of the fatty tissue in this area was excised to help with identification of the port after it had been placed. The catheter was then cut off at the appropriate level. The receptacle was attached to the catheter and the locking clip was advanced and positioned securely holding the catheter onto the receptacle. The port was then able to be easily aspirated with blood and irrigated with heparin. The receptacle itself was secured down to the anterior surface of the chest wall muscle just medial to the incision placing it inferior to the right clavicle. This was secured down in place with 0 Prolene sutures in 4 quadrants. Again, the port was able to be accessed through the skin and was noted to aspirate blood easily and was irrigated with heparin. C-arm fluoroscopy was used to take a full view of the implanted port and no sign of complication was noted. The wound was irrigated with saline and then closed approximating the subcutaneous tissue with interrupted 4-0 Vicryl and the skin with running 4-0 Vicryl subcuticular stitch. Steri-Strips and benzoin were applied. Antibiotic ointment and sterile dressing were placed. The patient was then taken from the operating room in satisfactory condition. ESTIMATED BLOOD LOSS: 20 mL. COMPLICATIONS: None. PROGNOSIS: Good. /[id number] RACHEL/MAYO
== END 2019-04-29 14:50 | disposition home or self-care (01) ==
LOC: FB.SDS 09:27
PROVIDERS: ATTEND Surgery
DX: C50.912 Malignant neoplasm of unspecified site of left female breast (principal); Z90.12 Acquired absence of left breast and nipple
CPT/HCPCS: 76000; J0690; J1642; J2001; J2250; J2704; J3490; J7050; J7120

== ENCOUNTER 2020-12-08 17:40 | Emergency (ER) | payer MEDICARE, MEDICAID ==
--- NOTE | 2020-12-08 18:11 | EDM.PDOC ---
ED HPI GENERAL MEDICAL PROBLEM - General Stated Complaint: PAIN Time Seen by Provider: 12/08/20 18:10 Source of Information: Reports: Patient History Limitations: Reports: No Limitations - History of Present Illness INITIAL COMMENTS - FREE TEXT/NARRATIVE: 75-year-old female who reports that she has total body and muscle pain on a day-to-day basis related to her fibromyalgia but it is usually controlled and she is able to control it but just taking Tylenol. Over the past week or so she has noticed that her symptoms have gotten progressively worse and she feels dizzy and she feels aching all over now the pain is a 10/10 all over her body and she is unable to stand it. She does report that she was on gabapentin 300 mg twice daily for this but that has been weaned off because of concerns of the diz ziness that she's been having and has been worked up for. She has had no fevers or chills. She has had no nausea or vomiting. She has had no dysuria or hematuria. She has been breathing normally. No cough. She is quite anxious right now and shaky because of her anxiety and her parent discomfort. There are no other associated signs or symptoms. There are no other modifying factors. Onset: Other (2 weeks. Worsening) Duration: Getting Worse Location: Reports: Generalized Quality: Reports: Ache, Sharp, Other (Spasm-like) Severity: Severe Improves with: Reports: None Worsens with: Reports: Other (Activity), Movement Context: Reports: Other (As above.) Associated Symptoms: Reports: No Other Symptoms (Except as above.) Treatments SHIP PILOT: Reports: Acetaminophen Shoulder Pain Score (Numeric/FACES): 10 - Related Data Allergies Allergy/AdvReac Type Severity Reaction Status Date / Time paroxetine [From Paxil] Allergy Other Verified 04/28/19 10:07 propranolol Allergy Other Verified 04/28/19 10:07 Home Meds: Home Meds Aspirin 81 mg PO DAILY 04/13/19 [History] Biotin 1,000 mcg PO DAILY 04/13/19 [History] Cholecalciferol (Vitamin D3) [Vitamin D3] 1,000 unit PO DAILY 04/13/19 [History] DULoxetine [Cymbalta] 60 mg PO BEDTIME 04/13/19 [History] Donepezil HCl [Aricept] 10 mg PO BEDTIME 04/13/19 [History] Levothyroxine Sodium [Synthroid] 112 mcg PO ACBREAKFAST 04/13/19 [History] Losartan [Cozaar] 25 mg PO DAILY 04/13/19 [History] Memantine HCl [Namenda] 10 mg PO BID 04/13/19 [History] atorvaSTATin [Lipitor] 10 mg PO BEDTIME 04/13/19 [History] polyethylene glycoL 3350 [MiraLAX] 17 gm PO DAILY PRN 04/13/19 [History] rOPINIRole [Requip] 4 mg PO TIDMEALS 04/13/19 [History] Carbidopa/Levodopa [Sinemet 25-100 mg Tablet] 2 tab PO DAILY@1800 04/14/19 [History] LORazepam 1 mg PO BEDTIME 04/14/19 [History] Multivitamin [Daily Zeyad] 1 tab PO DAILY 04/14/19 [History] Omeprazole 40 mg PO ACBREAKFAST 04/14/19 [History] buPROPion HCL [Wellbutrin Xl] 150 mg PO DAILY 04/14/19 [History] lamoTRIgine [LaMICtal] 150 mg PO BEDTIME 04/14/19 [History] Bisacodyl [Gentle Laxative] 10 mg RECTAL DAILY PRN 12/08/20 [History] Gabapentin [Neurontin] 100 mg PO BEDTIME 12/08/20 [History] Gabapentin [Neurontin] 300 mg PO BID #30 cap 12/08/20 [Rx] Lactobacillus Acidophilus/Fos [Acidophilus Probiotic Tablet] 1 tab PO DAILY 12/08/20 [History] Loperamide HCl [Imodium A-D] 2 mg PO DAILY 12/08/20 [History] Magnesium Chloride [Magnesium] 64 mg PO DAILY 12/08/20 [History] Meclizine HCl 25 mg PO ASDIRECTED PRN 12/08/20 [History] Melatonin 5 mg PO BEDTIME 12/08/20 [History] guaiFENesin/Dextromethorphan [Guaifenesin-Dm 200-20 mg/10 ml] 200 mg PO Q4HR PRN 12/08/20 [History] Past Medical History HEENT History: Reports: Impaired Vision Other HEENT History: MEIBOMIAN GLAND DYSFUNCTION Cardiovascular History: Reports: Hypertension Respiratory History: Reports: None Gastrointestinal History: Reports: GERD Genitourinary History: Reports: Other (See Below) Other Genitourinary History: 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: Musculoskeletal History: Reports: None Neurological History: Reports: Parkinson's Other Neuro History: DEMENTIA Psychiatric History: Reports: Depression Endocrine/Metabolic History: Reports: Hypothyroidism, Obesity/BMI 30+ Hematologic History: Reports: None Immunologic History: Reports: None Oncologic (Cancer) History: Reports: Breast Dermatologic History: Reports: None - Past Surgical History HEENT Surgical History: Reports: None Cardiovascular Surgical History: Reports: None Respiratory Surgical History: Reports: None GI Surgical History: Reports: None Female Surgical History: Reports: Mastectomy Endocrine Surgical History: Reports: None Neurological Surgical History: Reports: None Musculoskeletal Surgical History: Reports: None Oncologic Surgical History: Reports: Mastectomy Dermatological Surgical History: Reports: None Social & Family History - Tobacco Use Tobacco Use Status *Q: Unknown Ever Used Tobacco (Nonsmoker) - Caffeine Use Caffeine Use: Reports: Soda - Alcohol Use Alcohol Use History: No - Living Situation & Occupation Occupation: Retired ED ROS GENERAL - Review of Systems Review Of Systems: See Below Constitutional: Reports: Malaise. Denies: Fever, Chills HEENT: Denies: Throat Pain Respiratory: Denies: Shortness of Breath, Cough Cardiovascular: Denies: Lightheadedness, Palpitations Endocrine: Reports: Fatigue GI/Abdominal: Denies: Nausea, Vomiting : Denies: Dysuria, Frequency Musculoskeletal: Reports: Neck Pain, Shoulder Pain, Arm Pain, Back Pain, Leg Pain, Muscle Pain Skin: Denies: Diaphoresis, Rash Neurological: Denies: Confusion, Dizziness Psychiatric: Reports: Anxiety Hematologic/Lymphatic: Denies: Easy Bleeding, Easy Bruising ED EXAM, GENERAL - Physical Exam Exam: See Below Exam Limited By: No Limitations General Appearance: Alert, Anxious, Moderate Distress (Is in discomfort and very anxious.), Obese Eye Exam: Bilateral Eye: EOMI, Normal Inspection Ears: Normal External Exam, Hearing Grossly Normal Ear Exam: Bilateral Ear: Auricle Normal Nose: Normal Inspection, Normal Mucosa, No Blood Throat/Mouth: Normal Voice, No Airway Compromise Head: Atraumatic, Normocephalic Neck: Normal Inspection, Supple, Non-Tender, Full Range of Motion Respiratory/Chest: No Respiratory Distress, Lungs Clear, Normal Breath Sounds, No Accessory Muscle Use, Chest Non-Tender Cardiovascular: Normal Peripheral Pulses, Regular Rate, Rhythm, No Murmur Peripheral Pulses: 2+: Radial (L), Radial (R), Dorsalis Pedis (L), Dorsalis Pedis (R) GI/Abdominal: Normal Bowel Sounds, Soft, Non-Tender, No Mass Back Exam: Muscle Spasm, Paraspinal Tenderness Extremities: Normal Inspection, No Pedal Edema, Normal Capillary Refill Neurological: Alert, Oriented, CN II-XII Intact, Normal Cognition, No Motor/Sensory Deficits Psychiatric: Anxious Skin Exam: Warm, Dry, Intact, Normal Color, No Rash Course - Vital Signs Last Recorded V/S: Last Vital Signs Temp 36.2 C 12/08/20 17:45 Pulse 74 12/08/20 19:02 Resp 16 12/08/20 19:02 BP 174/82 H 12/08/20 19:02 Pulse Ox 97 12/08/20 19:02 - Orders/Labs/Meds Labs: Laboratory Tests 12/08/20 12/08/20 Range/Units 19:00 19:00 WBC 8.9 (3.0-10.3) x10-3/uL RBC 4.45 (3.60-5.20) x10(6)uL Hgb 14.3 (11.4-15.5) g/dL Hct 41.4 (34.2-48.2) % MCV 93.1 (76.7-100.5) fL MCH 32.1 (23.9-33.9) pg MCHC 34.4 (31.9-34.8) g/dL RDW 14.1 (12.3-16.5) % Plt Count 264 (151-488) x10(3)uL MPV 7.1 (7.1-12.4) fL Neut % (Auto) 56.3 (30.8-76.2) % Lymph % (Auto) 32.1 (18.4-52.1) % [place] % (Auto) 8.1 (4.4-15.7) % Eos % (Auto) 2.8 (0.6-8.1) % Baso % (Auto) 0.7 (0.2-1.5) % Neut # (Auto) 5.0 (1.5-6.3) x10-3/uL Lymph # (Auto) 2.9 (1.0-4.4) x10-3/uL [place] # (Auto) 0.7 (0.3-1.0) x10-3/uL Eos # (Auto) 0.2 (0.0-0.8) x10-3/uL Baso # (Auto) 0.1 (0.0-0.1) x10-3/uL Sodium 136 (135-145) mmol/L Potassium 3.8 (3.5-5.3) mmol/L Chloride 101 (100-110) mmol/L Carbon Dioxide 24 (21-32) mmol/L BUN 14 (7-18) mg/dL Creatinine 0.9 (0.55-1.02) mg/dL Est Cr Clr Drug Dosing 41.38 mL/min Estimated GFR (MDRD) > 60 (>60) BUN/Creatinine Ratio 15.6 (9-20) Glucose 114 (80-116) mg/dL Calcium 9.3 (8.6-10.2) mg/dL Magnesium 1.9 (1.8-2.5) mg/dL Total Bilirubin 0.3 (0.1-1.3) mg/dL AST 14 (5-25) IU/L ALT 24 (12-36) U/L Alkaline Phosphatase 105 (56-112) IU/L Total Protein 6.8 (6.0-8.0) g/dL Albumin 3.7 (3.2-4.6) g/dL Globulin 3.1 g/dL Albumin/Globulin Ratio 1.2 Meds: Medications Discontinued Medications Generic Name Dose Route Start Last Admin Trade Name Freq PRN Reason Stop Dose Admin Diazepam 5 mg 12/08/20 18:46 12/08/20 18:57 Diazepam 5 Mg Tab PO 12/08/20 18:47 5 mg ONETIME ONE Administration Gabapentin 300 mg 12/08/20 19:53 12/08/20 20:04 Gabapentin 300 Mg Cap PO 12/08/20 19:54 300 mg ONETIME ONE Administration Ketorolac Tromethamine 30 mg 12/08/20 18:45 12/08/20 18:57 Ketorolac 30 Mg/Ml Sdv IM 12/08/20 18:46 30 mg ONETIME ONE Administration - Re-Assessments/Exams Free Text/Narrative Re-Assessment/Exam: 12/08/20 19:45: All of the patient's blood tests were reassuringly normal. She had a normal hemoglobin. Her electrolytes were all normal. Her BUN and creatinine were normal. She is feeling improved after the Toradol 30 mg IM and Valium 5 mg by mouth. She looks more calm and in less discomfort. She appears to be more relaxed than she was earlier. She feels that her pain and shakiness is improved. She apparently had felt that she had been controlling her fibromyalgia symptoms well with the gabapentin at 300 mg twice daily. For now, I will place her back on 300 mg of gabapentin twice daily and she is to follow-up with Dr. Cai this next week. Precautions and reasons for return to the emergency department were discussed with the patient and with her sons while she was in the emergency department or detailed in the patient's discharge instructions. Departure - Departure Time of Disposition: 20:00 Disposition: Home, Self-Care 01 Condition: Good Clinical Impression: Fibromyalgia muscle pain, Anxiety - Discharge Information Prescriptions: Gabapentin [Neurontin] 300 mg PO BID #30 cap Instructions: Myofascial Pain Syndrome and Fibromyalgia, Managing Anxiety, Adult Referrals: Helen Cai MD [Primary Care Provider] - Forms: ED Department Discharge Additional Instructions: All of your blood tests were reassuringly normal. You did not appear to be dehydrated. Your fibromyalgia symptoms appeared to be well controlled with Neurontin 300 mg twice daily in the past. I will place you on this again and I have sent a prescription to [facility] for 2 weeks supply of this. You will need to follow-up with Dr. Cai for recheck and discussion with her about your medications. You need to drink plenty of fluids. Activity as tolerated. Be careful with walking and use your assistive devices with walking as needed. You can continue to take Tylenol 1000 mg by mouth every 6 hours as needed for pain. Back to the emergency department for fever, unrelenting vomiting, trouble breathing or any other concerning signs or symptoms.
[2020-12-08] MEDS ORDERED: Ketorolac 30 MG/ML SDV IM ONE (18:45)
[2020-12-08] MEDS ORDERED: Diazepam 5 MG Tab PO ONE (18:46)
[2020-12-08] MEDS ORDERED: Gabapentin 300 MG Cap PO ONE (19:53)
== END 2020-12-08 20:20 | disposition home or self-care (01) ==
LOC: FB.ED 17:40
DX: M79.7 Fibromyalgia (principal); F41.9 Anxiety disorder, unspecified; E03.9 Hypothyroidism, unspecified; E66.9 Obesity, unspecified; Z79.82 Long term (current) use of aspirin; Z88.8 Allergy status to other drugs, medicaments and biological substances; Z79.899 Other long term (current) drug therapy; Z68.37 Body mass index [BMI] 37.0-37.9, adult
CPT/HCPCS: 36415; 80053; 83735; 85025; 96372; 99284; A9270; J1885

== ENCOUNTER 2021-04-08 09:23 | Emergency (ER) | payer MEDICARE, MEDICAID ==
[2021-04-08] MEDS ORDERED: Sodium Chloride 0.9% 10 ML Syringe FLUSH PRN (09:46)
[2021-04-08] MEDS ORDERED: Sodium Chloride 0.9% 1,000 ML IV SCH (10:00)
[2021-04-08] MEDS: Ketorolac 30 MG/ML SDV IVPUSH STA ×2 (10:58→11:47)
[2021-04-08] MEDS: Ondansetron 4 MG/2 ML SDV IVPUSH STA ×2 (10:58→11:47)
[2021-04-08] MEDS ORDERED: Ketorolac 30 MG/ML SDV IM STA (11:34)
[2021-04-08] MEDS ORDERED: Acetaminophen 500 MG Tab PO STA (11:34)
[2021-04-08] MEDS ORDERED: Ondansetron 4 MG Tab.DIS PO STA (11:36)
--- NOTE | 2021-04-08 11:41 | EDM.PDOC ---
ED HPI GENERAL MEDICAL PROBLEM - General Stated Complaint: WEAKNESS Time Seen by Provider: 04/08/21 09:30 Source of Information: Reports: Patient History Limitations: Reports: No Limitations - History of Present Illness INITIAL COMMENTS - FREE TEXT/NARRATIVE: Patient presented to the ED because of weakness, dizziness, pain and tingling of the hands and feet. She also c/o nausea but no vomiting,constipation and poor appetite. There is no recent fever, chills, cough or cold symptoms. Duration: Constant Generalized Pain Score (Numeric/FACES): 8 - Related Data Allergies Allergy/AdvReac Type Severity Reaction Status Date / Time paroxetine [From Paxil] Allergy Other Verified 04/08/21 20:33 propranolol Allergy Other Verified 04/08/21 20:33 Home Meds: Home Meds Aspirin 81 mg PO DAILY 04/13/19 [History] Biotin 1,000 mcg PO DAILY 04/13/19 [History] Cholecalciferol (Vitamin D3) [Vitamin D3] 1,000 unit PO DAILY 04/13/19 [History] DULoxetine [Cymbalta] 60 mg PO BEDTIME 04/13/19 [History] Donepezil HCl [Aricept] 10 mg PO BEDTIME 04/13/19 [History] Levothyroxine Sodium [Synthroid] 112 mcg PO ACBREAKFAST 04/13/19 [History] Losartan [Cozaar] 25 mg PO DAILY 04/13/19 [History] Memantine HCl [Namenda] 10 mg PO BID 04/13/19 [History] atorvaSTATin [Lipitor] 10 mg PO BEDTIME 04/13/19 [History] polyethylene glycoL 3350 [MiraLAX] 17 gm PO DAILY PRN 04/13/19 [History] rOPINIRole [Requip] 4 mg PO TIDMEALS 04/13/19 [History] Carbidopa/Levodopa [Sinemet 25-100 mg Tablet] 2 tab PO DAILY@1800 04/14/19 [History] LORazepam 1 mg PO BEDTIME 04/14/19 [History] Multivitamin [Daily Zeyad] 1 tab PO DAILY 04/14/19 [History] Omeprazole 40 mg PO ACBREAKFAST 04/14/19 [History] buPROPion HCL [Wellbutrin Xl] 150 mg PO DAILY 04/14/19 [History] lamoTRIgine [LaMICtal] 150 mg PO BEDTIME 04/14/19 [History] Bisacodyl [Gentle Laxative] 10 mg RECTAL DAILY PRN 12/08/20 [History] Gabapentin [Neurontin] 100 mg PO BEDTIME 12/08/20 [History] Gabapentin [Neurontin] 300 mg PO BID #30 cap 12/08/20 [Rx] Lactobacillus Acidophilus/Fos [Acidophilus Probiotic Tablet] 1 tab PO DAILY 12/08/20 [History] Loperamide HCl [Imodium A-D] 2 mg PO DAILY 12/08/20 [History] Magnesium Chloride [Magnesium] 64 mg PO DAILY 12/08/20 [History] Meclizine HCl 25 mg PO ASDIRECTED PRN 12/08/20 [History] Melatonin 5 mg PO BEDTIME 12/08/20 [History] guaiFENesin/Dextromethorphan [Guaifenesin-Dm 200-20 mg/10 ml] 200 mg PO Q4HR PRN 12/08/20 [History] Docusate Sodium/Sennosides [Senna Plus] 1 each PO BID PRN #15 tab 04/08/21 [Rx] traMADol [Ultram] 50 mg PO Q6H PRN #20 tab 04/08/21 [Rx] Past Medical History HEENT History: Reports: Impaired Vision Other HEENT History: MEIBOMIAN GLAND DYSFUNCTION Cardiovascular History: Reports: Hypertension Respiratory History: Reports: None Gastrointestinal History: Reports: GERD Genitourinary History: Reports: Other (See Below) 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: Musculoskeletal History: Reports: Fibromyalgia, Neck Pain, Chronic Neurological History: Reports: Parkinson's, Vertigo Other Neuro History: DEMENTIA Psychiatric History: Reports: Anxiety, Depression Endocrine/Metabolic History: Reports: Hypothyroidism, Obesity/BMI 30+ Hematologic History: Reports: None Immunologic History: Reports: None Oncologic (Cancer) History: Reports: Breast Dermatologic History: Reports: None - Past Surgical History HEENT Surgical History: Reports: None Cardiovascular Surgical History: Reports: None Respiratory Surgical History: Reports: None GI Surgical History: Reports: None Female Surgical History: Reports: Mastectomy Endocrine Surgical History: Reports: None Neurological Surgical History: Reports: None Musculoskeletal Surgical History: Reports: None Oncologic Surgical History: Reports: Mastectomy Dermatological Surgical History: Reports: None Social & Family History - Family History Family Medical History: No Pertinent Family History - Caffeine Use Caffeine Use: Reports: None - Living Situation & Occupation Occupation: Retired ED ROS GENERAL - Review of Systems Review Of Systems: See Below Constitutional: Reports: Weakness HEENT: Reports: No Symptoms Respiratory: Reports: No Symptoms Cardiovascular: Reports: No Symptoms Endocrine: Reports: No Symptoms GI/Abdominal: Reports: No Symptoms : Reports: No Symptoms Musculoskeletal: Reports: No Symptoms Skin: Reports: No Symptoms Neurological: Reports: Dizziness, Tingling, Weakness Psychiatric: Reports: No Symptoms Hematologic/Lymphatic: Reports: No Symptoms ED EXAM, GENERAL - Physical Exam Exam: See Below Exam Limited By: No Limitations General Appearance: Alert, No Apparent Distress Ears: Normal External Exam, Normal Canal Nose: Normal Inspection, Normal Mucosa, No Blood Throat/Mouth: Normal Inspection, Normal Lips, Normal Teeth, Normal Gums, Normal Oropharynx, Normal Voice Head: Atraumatic, Normocephalic Neck: Normal Inspection, Supple, Non-Tender, Full Range of Motion Respiratory/Chest: No Respiratory Distress, Lungs Clear, Normal Breath Sounds, No Accessory Muscle Use, Chest Non-Tender Cardiovascular: Normal Peripheral Pulses, Regular Rate, Rhythm, No Edema, No Gallop, No JVD, No Murmur, No Rub GI/Abdominal: Normal Bowel Sounds, Soft, Non-Tender, No Organomegaly, No Distention, No Abnormal Bruit Back Exam: Normal Inspection, Full Range of Motion Extremities: Normal Inspection, Normal Range of Motion, Non-Tender, No Pedal Edema, Normal Capillary Refill Neurological: Alert, Oriented, CN II-XII Intact Psychiatric: Normal Affect, Normal Mood Skin Exam: Warm Course - Vital Signs Text/Narrative:: Lab result was reviewed and discussed with patient NS 1 L bolus Zofran 4 mg IV x1 Toradol 30 mg IV x1 Tylenol 1000 mg PO x1 Last Recorded V/S: Last Vital Signs Temp 36.2 C 04/08/21 09:23 Pulse 64 04/08/21 12:15 Resp 18 04/08/21 12:15 BP 152/74 H 04/08/21 12:15 Pulse Ox 98 04/08/21 12:15 - Orders/Labs/Meds Orders: Active Orders 24 hr Category Date Time Status Chest 1V Frontal [CR] Stat Exams 04/08/21 09:46 Taken Saline Lock Insert [OM.PC] Routine Oth 04/08/21 09:46 Ordered EKG 12 Lead [EK] Routine Ther 04/08/21 09:46 Stop Req Labs: Laboratory Tests 04/08/21 04/08/21 04/08/21 Range/Units 09:46 10:02 10:02 WBC 6.0 (3.0-10.3) x10-3/uL RBC 3.97 (3.60-5.20) x10(6)uL Hgb 12.4 (11.4-15.5) g/dL Hct 37.2 (34.2-48.2) % MCV 93.7 (76.7-100.5) fL MCH 31.2 (23.9-33.9) pg MCHC 33.3 (31.9-34.8) g/dL RDW 14.0 (12.3-16.5) % Plt Count 195 (151-488) x10(3)uL MPV 6.9 L (7.1-12.4) fL Neut % (Auto) 64.6 (30.8-76.2) % Lymph % (Auto) 25.0 (18.4-52.1) % [place] % (Auto) 7.6 (4.4-15.7) % Eos % (Auto) 2.2 (0.6-8.1) % Baso % (Auto) 0.6 (0.2-1.5) % Neut # (Auto) 3.9 (1.5-6.3) x10-3/uL Lymph # (Auto) 1.5 (1.0-4.4) x10-3/uL [place] # (Auto) 0.5 (0.3-1.0) x10-3/uL Eos # (Auto) 0.1 (0.0-0.8) x10-3/uL Baso # (Auto) 0.0 (0.0-0.1) x10-3/uL Sodium (135-145) mmol/L Potassium (3.5-5.3) mmol/L Chloride (100-110) mmol/L Carbon Dioxide (21-32) mmol/L BUN (7-18) mg/dL Creatinine (0.55-1.02) mg/dL Est Cr Clr Drug Dosing Estimated GFR (MDRD) (>60) BUN/Creatinine Ratio (9-20) Glucose (80-116) mg/dL Calcium (8.6-10.2) mg/dL Total Bilirubin (0.1-1.3) mg/dL AST (5-25) IU/L ALT (12-36) U/L Alkaline Phosphatase (56-112) IU/L Troponin I < 4.0 L (4.0-60.3) pg/mL Total Protein (6.0-8.0) g/dL Albumin (3.2-4.6) g/dL Globulin g/dL Albumin/Globulin Ratio Urine Color Yellow (YELLOW) Urine Appearance Clear (CLEAR) Urine pH 9.0 H (5.0-6.5) Ur Specific [place] 1.015 (1.010-1.025) Urine Protein Negative (NEGATIVE) mg/dL Urine Glucose (UA) Normal (NORMAL) mg/dL Urine Ketones Negative (NEGATIVE) mg/dL Urine Occult Blood Negative (NEGATIVE) Urine Nitrite Negative (NEGATIVE) Urine Bilirubin Negative (NEGATIVE) Urine Urobilinogen Normal (NEGATIVE) mg/dL Ur Leukocyte Esterase Negative (NEGATIVE) Urine RBC 0-5 (0-5) Urine WBC 0-5 (0-5) Ur Squamous Epith Cells Few H (NS,R,O) Urine Bacteria Rare H (NS) 04/08/21 Range/Units 10:32 WBC (3.0-10.3) x10-3/uL RBC (3.60-5.20) x10(6)uL Hgb (11.4-15.5) g/dL Hct (34.2-48.2) % MCV (76.7-100.5) fL MCH (23.9-33.9) pg MCHC (31.9-34.8) g/dL RDW (12.3-16.5) % Plt Count (151-488) x10(3)uL MPV (7.1-12.4) fL Neut % (Auto) (30.8-76.2) % Lymph % (Auto) (18.4-52.1) % Richardson % (Auto) (4.4-15.7) % Eos % (Auto) (0.6-8.1) % Baso % (Auto) (0.2-1.5) % Neut # (Auto) (1.5-6.3) x10-3/uL Lymph # (Auto) (1.0-4.4) x10-3/uL [place] # (Auto) (0.3-1.0) x10-3/uL Eos # (Auto) (0.0-0.8) x10-3/uL Baso # (Auto) (0.0-0.1) x10-3/uL Sodium 132 L (135-145) mmol/L Potassium 3.7 (3.5-5.3) mmol/L Chloride 97 L (100-110) mmol/L Carbon Dioxide 27 (21-32) mmol/L BUN 9 (7-18) mg/dL Creatinine 0.9 (0.55-1.02) mg/dL Est Cr Clr Drug Dosing TNP Estimated GFR (MDRD) > 60 (>60) BUN/Creatinine Ratio 10.0 (9-20) Glucose 114 (80-116) mg/dL Calcium 9.0 (8.6-10.2) mg/dL Total Bilirubin 0.3 (0.1-1.3) mg/dL AST 22 D (5-25) IU/L ALT 26 (12-36) U/L Alkaline Phosphatase 88 (56-112) IU/L Troponin I (4.0-60.3) pg/mL Total Protein 6.4 (6.0-8.0) g/dL Albumin 3.5 (3.2-4.6) g/dL Globulin 2.9 g/dL Albumin/Globulin Ratio 1.2 Urine Color (YELLOW) Urine Appearance (CLEAR) Urine pH (5.0-6.5) Ur Specific [place] (1.010-1.025) Urine Protein (NEGATIVE) mg/dL Urine Glucose (UA) (NORMAL) mg/dL Urine Ketones (NEGATIVE) mg/dL Urine Occult Blood (NEGATIVE) Urine Nitrite (NEGATIVE) Urine Bilirubin (NEGATIVE) Urine Urobilinogen (NEGATIVE) mg/dL Ur Leukocyte Esterase (NEGATIVE) Urine RBC (0-5) Urine WBC (0-5) Ur Squamous Epith Cells (NS,R,O) Urine Bacteria (NS) Meds: Medications Discontinued Medications Generic Name Dose Route Start Last Admin Trade Name Freq PRN Reason Stop Dose Admin Acetaminophen 1,000 mg 04/08/21 11:34 04/08/21 11:57 Acetaminophen 500 Mg Tab PO 04/08/21 11:35 1,000 mg NOW STA Administration Sodium Chloride 1,000 mls @ 999 mls/hr 04/08/21 10:00 Normal Saline IV ASDIRECTED HAKAN Ketorolac Tromethamine 30 mg 04/08/21 09:49 04/08/21 11:47 Ketorolac 30 Mg/Ml Sdv IVPUSH 04/08/21 09:50 Not Given NOW STA Ketorolac Tromethamine 60 mg 04/08/21 11:34 04/08/21 11:57 Ketorolac 30 Mg/Ml Sdv IM 04/08/21 11:35 60 mg NOW STA Administration Ondansetron HCl 4 mg 04/08/21 09:49 04/08/21 11:47 Ondansetron 4 Mg/2 Ml Sdv IVPUSH 04/08/21 09:50 Not Given NOW STA Ondansetron HCl 4 mg 04/08/21 11:36 04/08/21 11:57 Ondansetron 4 Mg Tab.Dis PO 04/08/21 11:37 4 mg NOW STA Administration Senna/Docusate Sodium 2 tab 04/08/21 11:41 04/08/21 11:57 Docusate Sodium/Sennosides 50-8.6 Mg Tab PO 04/08/21 11:42 2 tab NOW STA Administration Sodium Chloride 10 ml 04/08/21 09:46 Sodium Chloride 0.9% 10 Ml Syringe FLUSH ASDIRECTED PRN Keep Vein Open Departure - Departure Time of Disposition: 12:00 Disposition: Home, Self-Care 01 Condition: Good Clinical Impression: Peripheral neuropathy, Constipation, Dehydration - Discharge Information Prescriptions: Docusate Sodium/Sennosides [Senna Plus] 1 each PO BID PRN #15 tab PRN Reason: Constipation traMADol [Ultram] 50 mg PO Q6H PRN #20 tab PRN Reason: Pain Instructions: Constipation, Adult, [id number], Peripheral Neuropathy Referrals: Helen Cai MD [Primary Care Provider] - Forms: ED Department Discharge Additional Instructions: Please read discharge instructions on Peripheral Neuropathy and constipation Increase oral fluids Take tramadol 100 mg with tylenol 1000 mg every 8 hours as needed for pain Senna S 2 tablets daily until you have a normal stool follow up as needed - My Orders Last 24 Hours: My Active Orders 04/08/21 09:46 Chest 1V Frontal [CR] Stat Saline Lock Insert [OM.PC] Routine EKG 12 Lead [EK] Routine - Assessment/Plan Last 24 Hours: My Active Orders 04/08/21 09:46 Chest 1V Frontal [CR] Stat Saline Lock Insert [OM.PC] Routine EKG 12 Lead [EK] Routine
== END 2021-04-08 12:30 | disposition home or self-care (01) ==
LOC: FB.ED 09:23
DX: K59.00 Constipation, unspecified (principal); E86.0 Dehydration; G62.9 Polyneuropathy, unspecified; I10 Essential (primary) hypertension; E03.9 Hypothyroidism, unspecified; K21.9 Gastro-esophageal reflux disease without esophagitis; E66.9 Obesity, unspecified; Z79.82 Long term (current) use of aspirin; Z88.8 Allergy status to other drugs, medicaments and biological substances; Z79.899 Other long term (current) drug therapy; Z68.35 Body mass index [BMI] 35.0-35.9, adult
CPT/HCPCS: 36415; 71045; 80053; 81001; 84484; 85025; 96372; 99285; A9270; J1885; J2405; J7030

== ENCOUNTER 2021-08-07 22:37 | Emergency (ER) | payer MEDICARE, MEDICAID ==
[2021-08-08] MEDS ORDERED: Benzonatate 100 MG Cap PO ONE (00:52)
== END 2021-08-08 01:50 | disposition home or self-care (01) ==
LOC: FB.ED 22:37
DX: R53.1 Weakness (principal); G20 Parkinson's disease; K21.9 Gastro-esophageal reflux disease without esophagitis; I10 Essential (primary) hypertension; E03.9 Hypothyroidism, unspecified; E66.9 Obesity, unspecified; Z68.38 Body mass index [BMI] 38.0-38.9, adult; Z79.82 Long term (current) use of aspirin; Z79.899 Other long term (current) drug therapy
CPT/HCPCS: 36415; 80048; 81001; 82947; 84443; 84484; 85027; 99282; 99285; A9270

== ENCOUNTER 2021-10-31 08:05 | Day surgery (SDC) | payer MEDICARE, MEDICAID ==
[~2021-10-31 08:05] MED LIST changes: +Lactated Ringers 1,000 ML IV SCH
[2021-10-31] MEDS ORDERED: Midazolam 1 MG/ML 2 ML SDV IV ONE (08:06)
[2021-10-31] MEDS ORDERED: fentaNYL 100 MCG/2 ML SDV IV ONE (08:06)
[2021-10-31] MEDS: Lactated Ringers 1,000 ML IV PRN (08:45)
[2021-10-31] MEDS: acetaZOLAMIDE 500 MG Cap.ER PO ONE (09:59)
== END 2021-10-31 10:10 | disposition home or self-care (01) ==
LOC: FB.SDS 08:05
PROVIDERS: ATTEND Ophthalmology
DX: H25.813 Combined forms of age-related cataract, bilateral (principal); H35.363 Drusen (degenerative) of macula, bilateral; H43.813 Vitreous degeneration, bilateral; H04.123 Dry eye syndrome of bilateral lacrimal glands; I11.0 Hypertensive heart disease with heart failure; I50.32 Chronic diastolic (congestive) heart failure; E66.09 Other obesity due to excess calories; E03.9 Hypothyroidism, unspecified; E78.00 Pure hypercholesterolemia, unspecified; G62.89 Other specified polyneuropathies; G20 Parkinson's disease; F02.80 Dementia in other diseases classified elsewhere, unspecified severity, without behavioral disturbance, psychotic disturbance, mood disturbance, and anxiety; F41.1 Generalized anxiety disorder; Z79.899 Other long term (current) drug therapy; Z87.891 Personal history of nicotine dependence; Z88.8 Allergy status to other drugs, medicaments and biological substances; Z98.890 Other specified postprocedural states; Z68.41 Body mass index [BMI] 40.0-44.9, adult
CPT/HCPCS: 00142-QZ; A9270-GY; J2250; J3010; J7120; V2632

== ENCOUNTER 2021-11-28 09:45 | Day surgery (SDC) | payer MEDICARE, MEDICAID ==
[2021-11-28] MEDS ORDERED: fentaNYL 100 MCG/2 ML SDV IV ONE (09:46)
[2021-11-28] MEDS ORDERED: Midazolam 1 MG/ML 2 ML SDV IV ONE ×2 (09:46)
[2021-11-28] MEDS ORDERED: Lactated Ringers 1,000 ML IV PRN (10:30)
[2021-11-28] MEDS ORDERED: Sodium Chloride 0.9% 10 ML Syringe FLUSH PRN (10:30)
[2021-11-28] MEDS ORDERED: acetaZOLAMIDE 500 MG Cap.ER PO ONE (12:30)
== END 2021-11-28 12:56 | disposition home or self-care (01) ==
LOC: FB.SDS 09:45
PROVIDERS: ATTEND Ophthalmology
DX: H26.9 Unspecified cataract (principal); I11.0 Hypertensive heart disease with heart failure; I50.9 Heart failure, unspecified; F32.A Depression, unspecified; K21.9 Gastro-esophageal reflux disease without esophagitis; G20 Parkinson's disease; F02.80 Dementia in other diseases classified elsewhere, unspecified severity, without behavioral disturbance, psychotic disturbance, mood disturbance, and anxiety; E66.01 Morbid (severe) obesity due to excess calories; Z85.3 Personal history of malignant neoplasm of breast; Z98.890 Other specified postprocedural states; Z90.710 Acquired absence of both cervix and uterus; Z79.899 Other long term (current) drug therapy; Z88.8 Allergy status to other drugs, medicaments and biological substances; Z88.1 Allergy status to other antibiotic agents
CPT/HCPCS: 00142; 66984; A9270; J2250; J3010; J3490; J7120

== ENCOUNTER 2023-09-11 15:22 | Emergency (ER) | payer MEDICARE, MEDICAID ==
[2023-09-11 16:01] LABS: BASOPHILS PERCENT AUTO 0.4 % (0.2-1.5); EOSINOPHILS ABSOLUTE AUTO 0.2 x10-3/uL (0.0-0.8); EOSINOPHILS PERCENT AUTO 2.2 % (0.6-8.1); HEMATOCRIT 37.8 % (34.2-48.2); HEMOGLOBIN 12.6 g/dL (11.4-15.5); LYMPHOCYTES ABSOLUTE AUTO 1.6 x10-3/uL (1.0-4.4); LYMPHOCYTES PERCENT AUTO 18.3 % (18.4-52.1); MEAN CORPUSCULAR HEMOGLOBIN 32.2 pg (23.9-33.9); MEAN CORPUSCULAR HGB CONC 33.5 g/dL (31.9-34.8); MEAN CORPUSCULAR VOLUME 96.3 fL (76.7-100.5); MEAN PLATELET VOLUME 7.4 fL (7.1-12.4); MONOCYTES ABSOLUTE AUTO 0.9 x10-3/uL (0.3-1.0); MONOCYTES PERCENT AUTO 9.7 % (4.4-15.7); NEUTROPHILS ABSOLUTE AUTO 6.2 x10-3/uL (1.5-6.3); NEUTROPHILS PERCENT AUTO 69.4 % (30.8-76.2); PLATELET COUNT,PLT 235 x10(3)uL (151-488); RED BLOOD CELL COUNT 3.92 x10(6)uL (3.60-5.20); RED CELL DISTRIBUTION WIDTH 13.1 % (12.3-16.5)
[2023-09-11 16:03] LABS: BLOOD UREA NITROGEN,BUN 17 mg/dL (7-18); BUN/CREATININE RATIO 24.3 (9-20); CARBON DIOXIDE,CO2 32 mmol/L (21-32); CHLORIDE,CL 94 mmol/L (100-110); CREATININE 0.7 mg/dL (0.55-1.02); EST CRCL DRUG DOSING (CG) 50.79 mL/min; ESTIMATED GFR 89 mL/min (>60); GLUCOSE RANDOM 95 mg/dL (80-116); POTASSIUM,K 4.2 mmol/L (3.5-5.3); SODIUM,NA 130 mmol/L (135-145)
[2023-09-11 16:09] LABS: A/G RATIO 1.1; ALANINE AMINOTRANSFERASE,ALT 24 U/L (12-36); ALBUMIN 3.3 g/dL (3.2-4.6); ALKALINE PHOSPHATASE 68 IU/L (56-112); ASPARTATE AMNIOTRANSFERASE,AST 12 IU/L (5-25); BILIRUBIN TOTAL 0.4 mg/dL (0.1-1.3); PROTEIN TOTAL,TP 6.4 g/dL (6.0-8.0)
[2023-09-11] MEDS: traMADol 50 MG Tab PO ONE (17:06)
[2023-09-11] MEDS: Cephalexin 500 MG Cap PO ONE (17:41)
== END 2023-09-11 17:50 | disposition home or self-care (01) ==
LOC: FB.ED 15:22
DX: S02.2XXA Fracture of nasal bones, initial encounter for closed fracture (principal); I11.0 Hypertensive heart disease with heart failure; I50.9 Heart failure, unspecified; J44.9 Chronic obstructive pulmonary disease, unspecified; E03.9 Hypothyroidism, unspecified; E66.9 Obesity, unspecified; Z86.16 Personal history of COVID-19; Z90.710 Acquired absence of both cervix and uterus; Z68.41 Body mass index [BMI] 40.0-44.9, adult; Z79.82 Long term (current) use of aspirin; Z79.899 Other long term (current) drug therapy; Z79.890 Hormone replacement therapy; Z79.1 Long term (current) use of non-steroidal anti-inflammatories (NSAID); Z88.8 Allergy status to other drugs, medicaments and biological substances; W18.30XA Fall on same level, unspecified, initial encounter; Y92.002 Bathroom of unspecified non-institutional (private) residence as the place of occurrence of the external cause
CPT/HCPCS: 36415; 70450; 70486; 80053; 85025; 99283; 99284; A9270

== ENCOUNTER 2024-04-14 22:27 | Emergency (ER) | payer MEDICARE, MEDICAID ==
[2024-04-14] MEDS ORDERED: Nitroglycerin 0.4 MG Tab.SL SL ONE (22:31)
[2024-04-14] MEDS ORDERED: Sodium Chloride 0.9% 10 ML Syringe FLUSH PRN (22:31)
[2024-04-14] MEDS: Aspirin 81 MG Tab.Chew PO ONE (22:49)
[2024-04-14 22:53] LABS: BLOOD UREA NITROGEN,BUN 16 mg/dL (7-18); CALCIUM 9.1 mg/dL (8.6-10.2); CARBON DIOXIDE,CO2 31 mmol/L (21-32); CHLORIDE,CL 102 mmol/L (100-110); CREATININE 0.8 mg/dL (0.55-1.02); ESTIMATED GFR 75 mL/min (>60); GLUCOSE RANDOM 89 mg/dL (80-116); POTASSIUM,K 4.1 mmol/L (3.5-5.3); SODIUM,NA 140 mmol/L (135-145)
[2024-04-14 22:55] LABS: BASOPHILS ABSOLUTE AUTO 0.1 x10-3/uL (0.0-0.1); BASOPHILS PERCENT AUTO 0.5 % (0.2-1.5); EOSINOPHILS ABSOLUTE AUTO 0.2 x10-3/uL (0.0-0.8); EOSINOPHILS PERCENT AUTO 1.8 % (0.6-8.1); HEMATOCRIT 37.2 % (34.2-48.2); HEMOGLOBIN 12.6 g/dL (11.4-15.5); LYMPHOCYTES ABSOLUTE AUTO 2.4 x10-3/uL (1.0-4.4); MEAN CORPUSCULAR HEMOGLOBIN 28.9 pg (23.9-33.9); MEAN CORPUSCULAR HGB CONC 33.9 g/dL (31.9-34.8); MEAN CORPUSCULAR VOLUME 85.4 fL (76.7-100.5); MEAN PLATELET VOLUME 7.8 fL (7.1-12.4); MONOCYTES ABSOLUTE AUTO 1.2 x10-3/uL (0.3-1.0); MONOCYTES PERCENT AUTO 12.4 % (4.4-15.7); NEUTROPHILS PERCENT AUTO 61.3 % (30.8-76.2); PLATELET COUNT,PLT 268 x10(3)uL (151-488); RED CELL DISTRIBUTION WIDTH 16.9 % (12.3-16.5); WHITE BLOOD CELL COUNT,WBC 9.8 x10-3/uL (3.0-10.3)
[2024-04-14 22:59] LABS: A/G RATIO 1.1; ALANINE AMINOTRANSFERASE,ALT 32 U/L (12-36); ALBUMIN 3.5 g/dL (3.2-4.6); ALKALINE PHOSPHATASE 99 IU/L (56-112); ASPARTATE AMNIOTRANSFERASE,AST 15 IU/L (5-25); BILIRUBIN TOTAL 0.3 mg/dL (0.1-1.3); PROTEIN TOTAL,TP 6.7 g/dL (6.0-8.0)
[2024-04-14 23:06] LABS: PRO B-TYPE NATRIUR PEPT,BNPPRO 68 pg/mL (<=450)
[2024-04-14 23:14] LABS: RED BLOOD CELL COUNT 4.36 x10(6)uL (3.60-5.20); TROPONIN I < 4.0 pg/mL (4.0-60.3)
== END 2024-04-15 00:03 | disposition home or self-care (01) ==
LOC: FB.ED 22:27
DX: R07.89 Other chest pain (principal); I11.0 Hypertensive heart disease with heart failure; I50.9 Heart failure, unspecified; E03.9 Hypothyroidism, unspecified; E66.9 Obesity, unspecified; Z68.41 Body mass index [BMI] 40.0-44.9, adult; Z86.16 Personal history of COVID-19; Z90.710 Acquired absence of both cervix and uterus; Z88.8 Allergy status to other drugs, medicaments and biological substances; Z79.82 Long term (current) use of aspirin; Z79.890 Hormone replacement therapy; Z79.899 Other long term (current) drug therapy
CPT/HCPCS: 71045; 80053; 83880; 84484; 85025; 85379; 93005; 99285; A9270-GY

== ENCOUNTER 2024-09-21 00:45 | Emergency (ER) | payer MEDICARE, MEDICAID ==
[2024-09-21] MEDS ORDERED: Sodium Chloride 0.9% 10 ML Syringe FLUSH PRN (01:02)
[2024-09-21] MEDS: Sodium Chloride 0.9% 1,000 ML IV ONE (01:19)
[2024-09-21] MEDS: Prochlorperazine 10 MG in Sodium Chloride 0.9% 50 ML IV ONE (01:21)
[2024-09-21 01:24] LABS: BASOPHILS PERCENT AUTO 0.2 % (0.2-1.5); EOSINOPHILS ABSOLUTE AUTO 0.1 x10-3/uL (0.0-0.8); EOSINOPHILS PERCENT AUTO 1.4 % (0.6-8.1); HEMATOCRIT 39.5 % (34.2-48.2); HEMOGLOBIN 13.4 g/dL (11.4-15.5); LYMPHOCYTES ABSOLUTE AUTO 1.8 x10-3/uL (1.0-4.4); LYMPHOCYTES PERCENT AUTO 18.4 % (18.4-52.1); MEAN CORPUSCULAR HEMOGLOBIN 30.3 pg (23.9-33.9); MEAN CORPUSCULAR HGB CONC 33.9 g/dL (31.9-34.8); MEAN CORPUSCULAR VOLUME 89.4 fL (76.7-100.5); MEAN PLATELET VOLUME 7.1 fL (7.1-12.4); MONOCYTES ABSOLUTE AUTO 0.7 x10-3/uL (0.3-1.0); MONOCYTES PERCENT AUTO 7.3 % (4.4-15.7); NEUTROPHILS ABSOLUTE AUTO 7.1 x10-3/uL (1.5-6.3); NEUTROPHILS PERCENT AUTO 72.7 % (30.8-76.2); PLATELET COUNT,PLT 269 x10(3)uL (151-488); RED BLOOD CELL COUNT 4.42 x10(6)uL (3.60-5.20); WHITE BLOOD CELL COUNT,WBC 9.8 x10-3/uL (3.0-10.3)
[2024-09-21 01:28] LABS: BLOOD UREA NITROGEN,BUN 6 mg/dL (7-18); BUN/CREATININE RATIO 8.6 (9-20); CALCIUM 9.5 mg/dL (8.6-10.2); CARBON DIOXIDE,CO2 27 mmol/L (21-32); CHLORIDE,CL 95 mmol/L (100-110); CREATININE 0.7 mg/dL (0.55-1.02); EST CRCL DRUG DOSING (CG) 47.58 mL/min; ESTIMATED GFR 88 mL/min (>60); GLUCOSE RANDOM 145 mg/dL (80-116); POTASSIUM,K 3.6 mmol/L (3.5-5.3); SODIUM,NA 130 mmol/L (135-145)
[2024-09-21 01:30] LABS: C-REACTIVE PROTEIN 0.55 mg/dL (<0.50)
[2024-09-21 01:34] LABS: A/G RATIO 1.2; ALANINE AMINOTRANSFERASE,ALT 23 U/L (12-36); ALBUMIN 3.7 g/dL (3.2-4.6); ALKALINE PHOSPHATASE 93 IU/L (56-112); ASPARTATE AMNIOTRANSFERASE,AST 14 IU/L (5-25); BILIRUBIN TOTAL 0.4 mg/dL (0.1-1.3); PROTEIN TOTAL,TP 6.9 g/dL (6.0-8.0)
[2024-09-21 01:37] LABS: LACTIC ACID 1.4 mmol/L (0.4-2.0)
== END 2024-09-21 03:14 ==
LOC: FB.ED 00:45
DX: K29.00 Acute gastritis without bleeding (principal); E87.1 Hypo-osmolality and hyponatremia; I11.0 Hypertensive heart disease with heart failure; I50.9 Heart failure, unspecified; E78.00 Pure hypercholesterolemia, unspecified; K21.9 Gastro-esophageal reflux disease without esophagitis; E03.9 Hypothyroidism, unspecified; E66.9 Obesity, unspecified; Z88.8 Allergy status to other drugs, medicaments and biological substances; Z79.82 Long term (current) use of aspirin; Z79.899 Other long term (current) drug therapy; Z68.39 Body mass index [BMI] 39.0-39.9, adult
CPT/HCPCS: 36415; 80053; 83605; 83690; 85025; 86140; 96361; 96374; 99283; 99284; J0780; J7030